=== PATIENT | male | born 1955 | race Caucasian/White ===

== ENCOUNTER 2018-08-17 07:42 | Inpatient (IN) | payer BC ==
[~2018-08-17] VITALS: Ht 185.4 cm; Wt 89.8 kg
[2018-08-17] VITALS (19 sets, daily range): BP systolic 118–190; BP diastolic 72–97
[2018-08-17 08:51] LABS: CHLORIDE 107 mEq/L (98-107)
[2018-08-17 08:56] LABS: HEMATOCRIT. 26.7 % (42.0-52.0); HEMOGLOBIN. 8.6 g/dL (14.0-18.0); MEAN CORPUSCULAR HEMOGLOBIN 29.3 pg (28.0-32.0); MEAN CORPUSCULAR VOLUME 90.9 fL (80.0-94.0); MEAN PLATELET VOLUME 7.3 fl (7.4-10.4); PLATELET 373 x1000/uL (130-400); RED BLOOD CELL COUNT 2.94 mill/uL (4.7-6.1); RED CELL DISTRIBUTION WIDTH 14.5 % (11.6-14.6)
[2018-08-17] MEDS ORDERED: MORPHINE SULFATE 4 MG/ML CPJ (NOT FOR IM USE) IV ONE ×2 (09:00→10:15)
[2018-08-17 10:12] LABS: PLATELET ESTIMATE NORMAL
[2018-08-17] MEDS ORDERED: NITROGLYCERIN 0.4MG TABLET SL SL PRN (10:30)
[2018-08-17] MEDS ORDERED: DEXTROSE 50% WATER 50ML SYRINGE IV PRN (13:15)
[2018-08-17] MEDS ORDERED: CLONIDINE 0.1MG TABLET PO PRN ×2 (13:45→14:15)
[2018-08-17] MEDS ORDERED: ACETAMINOPHEN 325MG TABLET PO PRN (13:45)
[2018-08-17] MEDS ORDERED: HYDROCODONE/ACETAMINOPHEN 5/325MG TABLET PO PRN (13:45)
[2018-08-17] MEDS ORDERED: ENOXAPARIN 30MG/0.3ML SYR SUBCUT SCH ×2 (14:00→16:00)
[2018-08-17] MEDS ORDERED: HYDRALAZINE 20MG/ML VIAL IV PRN (14:15)
[2018-08-17 14:47] LABS: TOTAL IRON BINDING CAPACITY 214 ug/dL (250-450)
[2018-08-17] MEDS: ASPIRIN 81MG TABLET PO SCH (15:18)
[2018-08-17] MEDS: AMLODIPINE 10MG TABLET PO SCH ×2 (15:18→20:11)
[2018-08-17 15:58] LABS: CREATINE KINASE MB FRACTION 94.8 ng/mL (0.5-3.6)
[2018-08-17] MEDS: BLOOD SUGAR DIAGNOSTIC STRIP TEST SCH ×2 (17:26→20:11)
[2018-08-17] MEDS: INSULIN LISPRO 100 UNITS/ML SUBCUT SCH ×2 (17:44→20:11)
[2018-08-17] MEDS ORDERED: NITROGLYCERIN OINT 1GM/INCH UDPKT TD SCH (18:00)
[2018-08-17] MEDS ORDERED: HEPARIN 25,000 UNITS PREMIX 500 ML IV SCH (18:30)
[2018-08-17] MEDS ORDERED: HEPARIN 5000 UNITS/ML VIAL IV SCH (18:30)
[2018-08-17] MEDS ORDERED: HEPARIN 100 UNITS/1 ML VIAL IVF ONE (18:30)
[2018-08-17] MEDS: METOPROLOL TARTRATE 25MG TABLET PO SCH (18:31)
[2018-08-17] MEDS ORDERED: HEPARIN BOLUS PRN aPTT <30 IV (19:00)
[2018-08-17 19:15] LABS: *AMPHETAMINES SCREEN URINE NEGATIVE (NEGATIVE); *BARBITURATES SCREEN URINE NEGATIVE (NEGATIVE); *BENZODIAZEPINES SCREEN URINE NEGATIVE (NEGATIVE); *COCAINE SCREEN URINE NEGATIVE (NEGATIVE); METHADONE URINE SCREEN NEGATIVE (NEGATIVE); OPIATES URINE SCREEN NEGATIVE (NEGATIVE)
[2018-08-17 19:16] LABS: CANNABINOID URINE SCREEN NEGATIVE (NEGATIVE); PHENCYCLIDINE URINE SCREEN NEGATIVE (NEGATIVE)
[2018-08-17 19:34] LABS: INR 1.1; PROTHROMBIN TIME 11.2 sec (9.6-11.0)
[2018-08-17] MEDS: HEPARIN 25,000 UNITS PREMIX 500 ML IV SCH (20:53)
[2018-08-17] MEDS: HYDRALAZINE HCL 100MG TABLET PO SCH (22:00)
[2018-08-17] MEDS: NITROGLYCERIN OINT 1GM/INCH UDPKT TD SCH (22:12)
[2018-08-17 23:12] LABS: *AMPHETAMINES SCREEN URINE NEGATIVE (NEGATIVE); *BARBITURATES SCREEN URINE NEGATIVE (NEGATIVE); *BENZODIAZEPINES SCREEN URINE NEGATIVE (NEGATIVE); *COCAINE SCREEN URINE NEGATIVE (NEGATIVE); CANNABINOID URINE SCREEN NEGATIVE (NEGATIVE); METHADONE URINE SCREEN NEGATIVE (NEGATIVE); OPIATES URINE SCREEN NEGATIVE (NEGATIVE); PHENCYCLIDINE URINE SCREEN NEGATIVE (NEGATIVE)
[2018-08-18] VITALS (64 sets, daily range): BP systolic 85–132; BP diastolic 35–80
[2018-08-18] MEDS ORDERED: CEFTRIAXONE 2 G PREMIX 50 ML IV SCH (00:15)
[2018-08-18] MEDS: CEFTRIAXONE 2 G in DEXTROSE 5% WATER 50 ML IV SCH (01:04)
[2018-08-18] MEDS: HYDRALAZINE HCL 100MG TABLET PO SCH ×3 (05:04→22:41)
[2018-08-18] MEDS: BLOOD SUGAR DIAGNOSTIC STRIP TEST SCH ×4 (05:47→20:44)
[2018-08-18] MEDS: NITROGLYCERIN OINT 1GM/INCH UDPKT TD SCH ×3 (05:47→22:41)
[2018-08-18 05:52] LABS: BASOPHILS % 0.5 % (0.0-2.0); EOSINOPHILS % 1.5 % (0.0-5.0); HEMATOCRIT. 23.2 % (42.0-52.0); HEMOGLOBIN. 7.7 g/dL (14.0-18.0); LYMPHOCYTES % 7.5 % (20.0-50.0); MEAN CORPUSCULAR HEMOGLOBIN 29.7 pg (28.0-32.0); MEAN CORPUSCULAR VOLUME 89.2 fL (80.0-94.0); MEAN PLATELET VOLUME 7.1 fl (7.4-10.4); MONOCYTES % 7.7 % (2.0-8.0); NEUTROPHILS % 82.8 % (40.0-76.0); PLATELET 298 x1000/uL (130-400); RED CELL DISTRIBUTION WIDTH 13.6 % (11.6-14.6)
[2018-08-18 06:02] LABS: CREATINE KINASE MB FRACTION 128.7 ng/mL (0.5-3.6)
[2018-08-18] MEDS: INSULIN LISPRO 100 UNITS/ML SUBCUT SCH ×4 (06:03→20:49)
[2018-08-18 08:15] LABS: CLARITY URINE CLOUDY (CLEAR); COLOR URINE YELLOW (YELLOW); KETONES URINE NEGATIVE (NEGATIVE); LEUKOCYTE ESTERASE URINE 3+ (NEGATIVE); NITRITE URINE NEGATIVE (NEGATIVE); OCCULT BLOOD URINE 3+ (NEGATIVE); PROTEIN URINE 1+ (NEGATIVE); SPECIFIC GRAVITY URINE 1.011 (1.005-1.030); UROBILINOGEN URINE 0.2 E.U./dL (0.2-1.0)
[2018-08-18] MEDS ORDERED: ENOXAPARIN 40MG/0.4ML SYR SUBCUT SCH (09:00)
[2018-08-18] MEDS: ASPIRIN 81MG TABLET PO SCH (09:01)
[2018-08-18] MEDS: METOPROLOL TARTRATE 25MG TABLET PO SCH ×2 (09:08→20:51)
[2018-08-18] MEDS: AMLODIPINE 10MG TABLET PO SCH ×2 (09:08→20:51)
[2018-08-19] VITALS (66 sets, daily range): BP systolic 91–154; BP diastolic 33–97
[2018-08-19] MEDS: HEPARIN BOLUS PRN aPTT 30-44 IV ×2 (00:14→14:04)
[2018-08-19] MEDS: CEFTRIAXONE 2 G in DEXTROSE 5% WATER 50 ML IV SCH (00:36)
[2018-08-19] MEDS: HYDRALAZINE HCL 100MG TABLET PO SCH ×3 (06:00→22:00)
[2018-08-19] MEDS: BLOOD SUGAR DIAGNOSTIC STRIP TEST SCH ×4 (06:03→20:52)
[2018-08-19] MEDS: NITROGLYCERIN OINT 1GM/INCH UDPKT TD SCH ×3 (06:03→22:38)
[2018-08-19] MEDS: INSULIN LISPRO 100 UNITS/ML SUBCUT SCH ×4 (07:00→21:06)
[2018-08-19 08:41] LABS: HEMATOCRIT. 24.4 % (42.0-52.0); HEMOGLOBIN. 7.9 g/dL (14.0-18.0); MEAN CORPUSCULAR HEMOGLOBIN 29.2 pg (28.0-32.0); MEAN CORPUSCULAR VOLUME 89.9 fL (80.0-94.0); MEAN PLATELET VOLUME 7.8 fl (7.4-10.4); PLATELET 290 x1000/uL (130-400); RED BLOOD CELL COUNT 2.71 mill/uL (4.7-6.1); RED CELL DISTRIBUTION WIDTH 13.7 % (11.6-14.6)
[2018-08-19] MEDS: ASPIRIN 81MG TABLET PO SCH (08:57)
[2018-08-19 08:58] LABS: CHLORIDE 107 mEq/L (98-107)
[2018-08-19] MEDS: METOPROLOL TARTRATE 25MG TABLET PO SCH ×2 (09:00→21:05)
[2018-08-19] MEDS: AMLODIPINE 10MG TABLET PO SCH (09:00)
[2018-08-19 09:08] LABS: CREATINE KINASE 234 IU/L (39-308)
[2018-08-19 09:11] LABS: CREATINE KINASE MB FRACTION 43.2 ng/mL (0.5-3.6)
[2018-08-19 10:42] LABS: VITAMIN B12 SERUM 663 pg/mL (211-911)
[2018-08-19] MEDS: ONDANSETRON HCL 4MG/2ML INJ IV PRN ×2 (12:21→21:04)
[2018-08-19 13:08] LABS: PLATELET ESTIMATE NORMAL
[2018-08-19] MEDS ORDERED: HEPARIN SODIUM 1,000 UNIT/1ML VIAL IV NR (13:30)
[2018-08-19] MEDS: EPOETIN ALFA 4000UNITS/ML VIAL SUBCUT SCH (21:05)
[2018-08-19] MEDS: HEPARIN 25,000 UNITS PREMIX 500 ML IV SCH (21:10)
[2018-08-20] VITALS (61 sets, daily range): BP systolic 105–159; BP diastolic 45–78
[2018-08-20] MEDS: HEPARIN BOLUS PRN aPTT 30-44 IV (00:43)
[2018-08-20] MEDS: CEFTRIAXONE 2 G in DEXTROSE 5% WATER 50 ML IV SCH (01:17)
[2018-08-20] MEDS: HYDRALAZINE HCL 100MG TABLET PO SCH ×3 (06:28→22:00)
[2018-08-20] MEDS: NITROGLYCERIN OINT 1GM/INCH UDPKT TD SCH ×3 (06:29→22:08)
[2018-08-20] MEDS: BLOOD SUGAR DIAGNOSTIC STRIP TEST SCH ×4 (06:30→20:38)
[2018-08-20] MEDS: INSULIN LISPRO 100 UNITS/ML SUBCUT SCH ×4 (07:00→20:39)
[2018-08-20 07:43] LABS: CHLORIDE 104 mEq/L (98-107)
[2018-08-20 07:49] LABS: HEMATOCRIT. 21.7 % (42.0-52.0); HEMOGLOBIN. 7.3 g/dL (14.0-18.0); MEAN CORPUSCULAR HEMOGLOBIN 29.3 pg (28.0-32.0); MEAN CORPUSCULAR VOLUME 86.6 fL (80.0-94.0); MEAN PLATELET VOLUME 7.6 fl (7.4-10.4); PLATELET 295 x1000/uL (130-400); RED BLOOD CELL COUNT 2.51 mill/uL (4.7-6.1); RED CELL DISTRIBUTION WIDTH 13.6 % (11.6-14.6)
[2018-08-20 07:55] LABS: CREATINE KINASE 138 IU/L (39-308)
[2018-08-20 08:00] LABS: CREATINE KINASE MB FRACTION 21.4 ng/mL (0.5-3.6)
[2018-08-20] MEDS: METOPROLOL TARTRATE 25MG TABLET PO SCH ×2 (09:00→20:41)
[2018-08-20] MEDS ORDERED: ALBUMIN HUMAN 25GM/100ML (25%) IV NR (09:00)
[2018-08-20] MEDS ORDERED: HEPARIN SODIUM 1,000 UNIT/1ML VIAL IV NR (10:00)
[2018-08-20] MEDS ORDERED: MAGNESIUM CITRATE 300ML SOLUTION PO NR (10:30)
[2018-08-20] MEDS: CALCIUM ACETATE 667MG CAPSULE PO SCH ×2 (11:48→16:47)
[2018-08-20 15:58] LABS: PLATELET ESTIMATE NORMAL
[2018-08-20] MEDS: POLYETHYLENE GLYCOL 3350 (17GM) 1 DOSE PACK PO SCH (16:37)
[2018-08-20] MEDS ORDERED: DOCUSATE SODIUM SUGAR FREE 100MG/10ML UDC NG SCH (17:00)
[2018-08-20] MEDS ORDERED: DOCUSATE SODIUM SUGAR FREE 100MG/10ML UDC PO SCH (18:30)
[2018-08-20] MEDS: OMEPRAZOLE 20MG CAPSULE EXTENDED RELEASE PO SCH (20:40)
[2018-08-21] VITALS (65 sets, daily range): BP systolic 80–159; BP diastolic 35–88
[2018-08-21] MEDS: CEFTRIAXONE 2 G in DEXTROSE 5% WATER 50 ML IV SCH ×2 (00:40→23:53)
[2018-08-21 05:51] LABS: BASOPHILS % 0.4 % (0.0-2.0); EOSINOPHILS % 0.7 % (0.0-5.0); HEMATOCRIT. 21.3 % (42.0-52.0); HEMOGLOBIN. 7.2 g/dL (14.0-18.0); MEAN CORPUSCULAR HEMOGLOBIN 29.3 pg (28.0-32.0); MEAN CORPUSCULAR VOLUME 86.6 fL (80.0-94.0); MEAN PLATELET VOLUME 7.8 fl (7.4-10.4); MONOCYTES % 9.4 % (2.0-8.0); NEUTROPHILS % 81.5 % (40.0-76.0); PLATELET 302 x1000/uL (130-400); RED BLOOD CELL COUNT 2.46 mill/uL (4.7-6.1); RED CELL DISTRIBUTION WIDTH 13.5 % (11.6-14.6)
[2018-08-21 05:59] LABS: CHLORIDE 102 mEq/L (98-107)
[2018-08-21] MEDS: HYDRALAZINE HCL 100MG TABLET PO SCH ×3 (06:00→22:00)
[2018-08-21 06:10] LABS: CREATINE KINASE 114 IU/L (39-308)
[2018-08-21 06:13] LABS: CREATINE KINASE MB FRACTION 6.4 ng/mL (0.5-3.6)
[2018-08-21] MEDS: CALCIUM ACETATE 667MG CAPSULE PO SCH ×3 (06:30→17:00)
[2018-08-21] MEDS: BLOOD SUGAR DIAGNOSTIC STRIP TEST SCH ×4 (06:30→21:45)
[2018-08-21] MEDS: OMEPRAZOLE 20MG CAPSULE EXTENDED RELEASE PO SCH ×2 (06:30→21:46)
[2018-08-21] MEDS: INSULIN LISPRO 100 UNITS/ML SUBCUT SCH ×4 (06:30→21:00)
[2018-08-21] MEDS: NITROGLYCERIN OINT 1GM/INCH UDPKT TD SCH ×3 (06:31→21:46)
[2018-08-21] MEDS: POLYETHYLENE GLYCOL 3350 (17GM) 1 DOSE PACK PO SCH (09:00)
[2018-08-21] MEDS: DOCUSATE SODIUM 100MG CAPSULE PO SCH ×2 (09:22→17:00)
[2018-08-21] MEDS: METOPROLOL TARTRATE 25MG TABLET PO SCH ×2 (09:23→21:46)
[2018-08-21] MEDS ORDERED: MIDAZOLAM HCL 5 MG/5 ML VIAL ONE (15:04)
[2018-08-21] MEDS ORDERED: FENTANYL CITRATE/PF 50MCG/ML 2ML VIAL ONE ×2 (15:05→17:27)
[2018-08-21] MEDS ORDERED: DIPHENHYDRAMINE 50MG/ML VIAL ONE (15:05)
[2018-08-21] MEDS ORDERED: FENTANYL CITRATE/PF 50MCG/ML 2ML VIAL IV ONE (17:30)
[2018-08-21] MEDS ORDERED: MIDAZOLAM HCL 2 MG/2 ML VIAL IV ONE (17:30)
[2018-08-21 20:06] LABS: HEMATOCRIT. 24.8 % (42.0-52.0); HEMOGLOBIN. 8.4 g/dL (14.0-18.0); MEAN CORPUSCULAR HEMOGLOBIN 29.3 pg (28.0-32.0); MEAN CORPUSCULAR VOLUME 87.1 fL (80.0-94.0); MEAN PLATELET VOLUME 7.6 fl (7.4-10.4); PLATELET 267 x1000/uL (130-400); RED BLOOD CELL COUNT 2.85 mill/uL (4.7-6.1); RED CELL DISTRIBUTION WIDTH 13.8 % (11.6-14.6)
[2018-08-21] MEDS ORDERED: EPOETIN ALFA 4000UNITS/ML VIAL SUBCUT SCH (21:00)
[2018-08-21 22:06] LABS: PLATELET ESTIMATE NORMAL
[2018-08-21] MEDS: EPOETIN ALFA 4000UNITS/ML VIAL SUBCUT SCH (22:48)
[2018-08-21] MEDS ORDERED: LIDOCAINE HCL 2% JELLY 5ML MM NR (23:30)
[2018-08-22] VITALS (36 sets, daily range): BP systolic 100–145; BP diastolic 56–101
[2018-08-22 05:01] LABS: BASOPHILS % 0.6 % (0.0-2.0); EOSINOPHILS % 2.1 % (0.0-5.0); HEMATOCRIT. 24.7 % (42.0-52.0); HEMOGLOBIN. 8.3 g/dL (14.0-18.0); LYMPHOCYTES % 10.4 % (20.0-50.0); MEAN CORPUSCULAR HEMOGLOBIN 29.3 pg (28.0-32.0); MEAN CORPUSCULAR VOLUME 87.7 fL (80.0-94.0); MEAN PLATELET VOLUME 7.4 fl (7.4-10.4); NEUTROPHILS % 77.9 % (40.0-76.0); PLATELET 278 x1000/uL (130-400); RED BLOOD CELL COUNT 2.82 mill/uL (4.7-6.1); RED CELL DISTRIBUTION WIDTH 14.3 % (11.6-14.6)
[2018-08-22] MEDS: HYDRALAZINE HCL 100MG TABLET PO SCH ×3 (06:00→22:00)
[2018-08-22] MEDS: OMEPRAZOLE 20MG CAPSULE EXTENDED RELEASE PO SCH ×2 (06:09→21:22)
[2018-08-22] MEDS: CALCIUM ACETATE 667MG CAPSULE PO SCH ×3 (06:09→18:02)
[2018-08-22] MEDS: INSULIN LISPRO 100 UNITS/ML SUBCUT SCH ×4 (06:10→21:00)
[2018-08-22] MEDS: NITROGLYCERIN OINT 1GM/INCH UDPKT TD SCH ×3 (06:10→22:00)
[2018-08-22] MEDS: BLOOD SUGAR DIAGNOSTIC STRIP TEST SCH ×4 (06:10→21:00)
[2018-08-22] MEDS: POLYETHYLENE GLYCOL 3350 (17GM) 1 DOSE PACK PO SCH (09:00)
[2018-08-22] MEDS: METOPROLOL TARTRATE 25MG TABLET PO SCH ×2 (09:15→21:00)
[2018-08-22] MEDS: DOCUSATE SODIUM 100MG CAPSULE PO SCH ×2 (09:15→18:02)
[2018-08-22] MEDS: ASPIRIN 81MG TABLET PO SCH (11:44)
[2018-08-23] VITALS (12 sets, daily range): BP systolic 109–142; BP diastolic 61–81
[2018-08-23] MEDS: CEFTRIAXONE 2 G in DEXTROSE 5% WATER 50 ML IV SCH (02:39)
[2018-08-23] MEDS: NITROGLYCERIN OINT 1GM/INCH UDPKT TD SCH ×3 (06:12→21:29)
[2018-08-23] MEDS: HYDRALAZINE HCL 100MG TABLET PO SCH ×3 (06:12→21:29)
[2018-08-23] MEDS: OMEPRAZOLE 20MG CAPSULE EXTENDED RELEASE PO SCH ×2 (06:12→21:28)
[2018-08-23] MEDS: BLOOD SUGAR DIAGNOSTIC STRIP TEST SCH ×4 (06:30→20:40)
[2018-08-23] MEDS: INSULIN LISPRO 100 UNITS/ML SUBCUT SCH ×4 (07:20→20:40)
[2018-08-23] MEDS: POLYETHYLENE GLYCOL 3350 (17GM) 1 DOSE PACK PO SCH (07:58)
[2018-08-23] MEDS: ASPIRIN 81MG TABLET PO SCH (08:02)
[2018-08-23] MEDS: CALCIUM ACETATE 667MG CAPSULE PO SCH ×3 (08:02→17:55)
[2018-08-23] MEDS: DOCUSATE SODIUM 100MG CAPSULE PO SCH ×2 (08:03→17:55)
[2018-08-23] MEDS: METOPROLOL TARTRATE 25MG TABLET PO SCH ×2 (08:03→21:28)
[2018-08-23 19:21] LABS: CLARITY URINE TURBID (CLEAR); COLOR URINE YELLOW (YELLOW); KETONES URINE NEGATIVE (NEGATIVE); LEUKOCYTE ESTERASE URINE 3+ (NEGATIVE); NITRITE URINE NEGATIVE (NEGATIVE); OCCULT BLOOD URINE 3+ (NEGATIVE); PH URINE 7.5 (4.5-8.0); PROTEIN URINE 1+ (NEGATIVE); SPECIFIC GRAVITY URINE 1.008 (1.005-1.030); UROBILINOGEN URINE 0.2 E.U./dL (0.2-1.0)
[2018-08-24] VITALS (17 sets, daily range): BP systolic 107–149; BP diastolic 55–78
[2018-08-24] MEDS: CEFTRIAXONE 2 G in DEXTROSE 5% WATER 50 ML IV SCH (01:41)
[2018-08-24] MEDS: HYDRALAZINE HCL 100MG TABLET PO SCH ×3 (06:00→21:49)
[2018-08-24 06:18] LABS: HEMATOCRIT 22.2 % (42.0-52.0); HEMOGLOBIN 7.3 g/dL (14.0-18.0); MEAN CORPUSCULAR HEMOGLOBIN 29.1 pg (28.0-32.0); MEAN CORPUSCULAR VOLUME 88.1 fL (80.0-94.0); PLATELET 231 x1000/uL (130-400); RED BLOOD CELL COUNT 2.52 mill/uL (4.7-6.1); RED CELL DISTRIBUTION WIDTH 14.4 % (11.6-14.6)
[2018-08-24] MEDS: OMEPRAZOLE 20MG CAPSULE EXTENDED RELEASE PO SCH ×2 (06:20→21:49)
[2018-08-24] MEDS: BLOOD SUGAR DIAGNOSTIC STRIP TEST SCH ×4 (06:20→21:00)
[2018-08-24] MEDS: NITROGLYCERIN OINT 1GM/INCH UDPKT TD SCH ×3 (06:20→21:50)
[2018-08-24] MEDS: CALCIUM ACETATE 667MG CAPSULE PO SCH ×3 (07:20→18:07)
[2018-08-24] MEDS: INSULIN LISPRO 100 UNITS/ML SUBCUT SCH ×4 (07:20→21:00)
[2018-08-24] MEDS: METOPROLOL TARTRATE 25MG TABLET PO SCH ×2 (09:00→21:49)
[2018-08-24] MEDS: POLYETHYLENE GLYCOL 3350 (17GM) 1 DOSE PACK PO SCH (09:00)
[2018-08-24] MEDS: ASPIRIN 81MG TABLET PO SCH (11:08)
[2018-08-24] MEDS: DOCUSATE SODIUM 100MG CAPSULE PO SCH ×2 (11:08→18:07)
[2018-08-24] MEDS: FINASTERIDE 5MG TABLET PO SCH (21:48)
[2018-08-24] MEDS: TAMSULOSIN HCL 0.4MG SR CAPSULE PO SCH (21:49)
[2018-08-24] MEDS: EPOETIN ALFA 4000UNITS/ML VIAL SUBCUT SCH (21:50)
[2018-08-25] VITALS (22 sets, daily range): BP systolic 90–140; BP diastolic 45–93
[2018-08-25] MEDS: CEFTRIAXONE 2 G in DEXTROSE 5% WATER 50 ML IV SCH (01:36)
[2018-08-25] MEDS: HYDRALAZINE HCL 100MG TABLET PO SCH ×3 (05:47→22:00)
[2018-08-25] MEDS: BLOOD SUGAR DIAGNOSTIC STRIP TEST SCH ×4 (05:47→21:40)
[2018-08-25] MEDS: INSULIN LISPRO 100 UNITS/ML SUBCUT SCH ×4 (05:48→21:00)
[2018-08-25] MEDS: NITROGLYCERIN OINT 1GM/INCH UDPKT TD SCH ×3 (05:49→22:00)
[2018-08-25 06:13] LABS: HIV SCREEN 4G Non Reactive (Non Reactive)
[2018-08-25 06:42] LABS: HEMATOCRIT. 25.1 % (42.0-52.0); HEMOGLOBIN. 8.4 g/dL (14.0-18.0); MEAN CORPUSCULAR VOLUME 89.2 fL (80.0-94.0); MEAN PLATELET VOLUME 7.6 fl (7.4-10.4); PLATELET 199 x1000/uL (130-400); RED BLOOD CELL COUNT 2.81 mill/uL (4.7-6.1)
[2018-08-25] MEDS ORDERED: ASPIRIN/SOD BICARB/CITRIC ACID 324MG TAB EFF ONE (08:00)
[2018-08-25] MEDS ORDERED: IODIXANOL 320MG/ML 100 ML BOTTLE IV ONE (08:00)
[2018-08-25] MEDS ORDERED: LIDOCAINE HCL 1% 20ML VIAL (Pyxis) INJ ONE (08:00)
[2018-08-25] MEDS ORDERED: MIDAZOLAM HCL 2 MG/2 ML VIAL ONE (08:16)
[2018-08-25] MEDS ORDERED: FENTANYL CITRATE/PF 50MCG/ML 2ML VIAL ONE (08:17)
[2018-08-25] MEDS ORDERED: IOHEXOL-300 100 ML BOTTLE ONE (08:43)
[2018-08-25] MEDS ORDERED: ACETAMINOPHEN 325MG TABLET PO PRN ×2 (09:15→16:15)
[2018-08-25] MEDS ORDERED: ONDANSETRON HCL 4MG/2ML INJ IV PRN (09:15)
[2018-08-25] MEDS ORDERED: ATROPINE SULFATE 1MG/10ML SYR IV PRN (09:15)
[2018-08-25] MEDS ORDERED: MORPHINE SULFATE 2 MG/ML CPJ (NOT FOR IM USE) IV PRN (09:15)
[2018-08-25] MEDS ORDERED: HEPARIN SODIUM 1,000 UNIT/1ML VIAL IV ONE (10:17)
[2018-08-25] MEDS ORDERED: NITROGLYCERIN 50MCG/ML 10ML VIAL (CATH LAB) IV ONE (10:17)
[2018-08-25] MEDS ORDERED: PHENYLEPHRINE 100MCG/ML 10ML VIAL (CATH LAB) IV ONE (10:17)
[2018-08-25] MEDS ORDERED: NICARDIPINE 100MCG/ML 10ML VIAL (CATH LAB) IV ONE (10:17)
[2018-08-25] MEDS: CALCIUM ACETATE 667MG CAPSULE PO SCH ×3 (10:24→18:30)
[2018-08-25] MEDS: POLYETHYLENE GLYCOL 3350 (17GM) 1 DOSE PACK PO SCH (10:25)
[2018-08-25] MEDS: METOPROLOL TARTRATE 25MG TABLET PO SCH ×2 (10:25→21:00)
[2018-08-25] MEDS: DOCUSATE SODIUM 100MG CAPSULE PO SCH ×2 (10:25→18:30)
[2018-08-25] MEDS: ASPIRIN 81MG TABLET PO SCH (10:25)
[2018-08-25 15:41] LABS: PLATELET ESTIMATE NORMAL
[2018-08-25] MEDS ORDERED: NITROGLYCERIN 0.4MG TABLET SL SL PRN (16:15)
[2018-08-25] MEDS ORDERED: LEVOFLOXACIN 500MG PREMIX 100 ML IV SCH (18:00)
[2018-08-25 18:58] LABS: PROTHROMBIN TIME 10.3 sec (9.6-11.0)
[2018-08-25] MEDS ORDERED: ALBUMIN HUMAN 12.5G/250ML (5%) IV NR (21:00)
[2018-08-26] VITALS (16 sets, daily range): BP systolic 98–132; BP diastolic 47–74
[2018-08-26] MEDS: FINASTERIDE 5MG TABLET PO SCH ×2 (00:16→21:30)
[2018-08-26] MEDS: TAMSULOSIN HCL 0.4MG SR CAPSULE PO SCH ×2 (00:17→21:30)
[2018-08-26] MEDS: OMEPRAZOLE 20MG CAPSULE EXTENDED RELEASE PO SCH ×3 (00:18→21:30)
[2018-08-26] MEDS: HYDRALAZINE HCL 100MG TABLET PO SCH ×3 (06:00→21:15)
[2018-08-26] MEDS: BLOOD SUGAR DIAGNOSTIC STRIP TEST SCH ×4 (06:16→20:59)
[2018-08-26] MEDS: NITROGLYCERIN OINT 1GM/INCH UDPKT TD SCH ×3 (06:28→21:43)
[2018-08-26 07:18] LABS: HEMATOCRIT. 26.5 % (42.0-52.0); HEMOGLOBIN. 9.1 g/dL (14.0-18.0); MEAN CORPUSCULAR HEMOGLOBIN 30.5 pg (28.0-32.0); MEAN CORPUSCULAR VOLUME 88.5 fL (80.0-94.0); MEAN PLATELET VOLUME 7.6 fl (7.4-10.4); PLATELET 181 x1000/uL (130-400); RED CELL DISTRIBUTION WIDTH 14.1 % (11.6-14.6)
[2018-08-26] MEDS: INSULIN LISPRO 100 UNITS/ML SUBCUT SCH ×4 (07:20→20:59)
[2018-08-26 07:32] LABS: CHLORIDE 105 mEq/L (98-107)
[2018-08-26] MEDS: POLYETHYLENE GLYCOL 3350 (17GM) 1 DOSE PACK PO SCH (09:01)
[2018-08-26] MEDS: CALCIUM ACETATE 667MG CAPSULE PO SCH ×3 (09:02→18:00)
[2018-08-26] MEDS: DOCUSATE SODIUM 100MG CAPSULE PO SCH ×2 (09:02→18:00)
[2018-08-26] MEDS: ASPIRIN 81MG TABLET PO SCH (09:02)
[2018-08-26] MEDS: METOPROLOL TARTRATE 25MG TABLET PO SCH ×2 (09:02→21:00)
[2018-08-26 10:43] LABS: PLATELET ESTIMATE NORMAL
[2018-08-26] MEDS ORDERED: ALBUMIN HUMAN 12.5G/250ML (5%) IV NR (14:30)
[2018-08-26] MEDS ORDERED: DOCUSATE SODIUM 100MG CAPSULE PO SCH (21:00)
[2018-08-26] MEDS ORDERED: FLUTICASONE PROPIONATE 50MCG/SPRAY BOTTLE BOTHNSTRLS SCH (21:00)
[2018-08-26] MEDS ORDERED: CHLORHEXIDINE GLUCONATE 4% EXTERNAL USE TOP SCH (21:00)
[2018-08-26] MEDS ORDERED: BISACODYL 10MG SUPP PR PRN (21:00)
[2018-08-26] MEDS ORDERED: ASCORBIC ACID 500 MG TABLET PO SCH (21:00)
[2018-08-26] MEDS: ALLOPURINOL 300 MG TABLET PO SCH (21:29)
[2018-08-27] VITALS (49 sets, daily range): BP systolic 79–233; BP diastolic 15–233
[2018-08-27 04:39] LABS: HEMATOCRIT. 31.3 % (42.0-52.0); HEMOGLOBIN. 10.5 g/dL (14.0-18.0); MEAN CORPUSCULAR HEMOGLOBIN 29.9 pg (28.0-32.0); MEAN CORPUSCULAR VOLUME 89.4 fL (80.0-94.0); MEAN PLATELET VOLUME 8.1 fl (7.4-10.4); PLATELET 144 x1000/uL (130-400); RED CELL DISTRIBUTION WIDTH 15.4 % (11.6-14.6)
[2018-08-27 04:43] LABS: INR 1.1; PROTHROMBIN TIME 10.9 sec (9.6-11.0)
[2018-08-27] MEDS: ALLOPURINOL 300 MG TABLET PO SCH (05:13)
[2018-08-27] MEDS ORDERED: THROMBIN (BOVINE) 5000 UNITS/VIAL TOP ONE ×2 (05:48→05:49)
[2018-08-27] MEDS ORDERED: METHYLENE BLUE 50 MG/10 ML AMP IV ONE (05:48)
[2018-08-27] MEDS ORDERED: BACITRACIN 15GM TUBE TOP ONE (05:48)
[2018-08-27] MEDS ORDERED: NORMAL SALINE 0.9% 10 ML SYR ONE (05:49)
[2018-08-27] MEDS ORDERED: BACITRACIN 50,000 UNITS/VIAL ONE (05:49)
[2018-08-27] MEDS ORDERED: DEL NIDO ELECTROLYTE-S(PH 7.4) 1,000 ML IV PRN ×2 (06:00)
[2018-08-27] MEDS ORDERED: NICARDIPINE 40MG/200ML PREMIX 200 ML IV PRN (06:00)
[2018-08-27] MEDS ORDERED: CEFAZOLIN 2,000 MG in DEXT 5% WATER 100 ML IV PRN (06:00)
[2018-08-27] MEDS ORDERED: PAPAVERINE HCL 180MG in SODIUM CHLORIDE 0.9% 24ML IV PRN (06:00)
[2018-08-27] MEDS: HYDRALAZINE HCL 100MG TABLET PO SCH (06:00)
[2018-08-27] MEDS ORDERED: AMINOCAPROIC ACID 10,000 MG in SODIUM CHLORIDE 0.9% 460 ML IV PRN (06:00)
[2018-08-27] MEDS ORDERED: INSULIN REGULAR (DRIP) 100 UNITS in SODIUM CHLORIDE 0.9% 99 ML IV PRN (06:00)
[2018-08-27] MEDS ORDERED: EPINEPHRINE 4 MG in DEXT 5% WATER 246 ML IV PRN (06:00)
[2018-08-27] MEDS ORDERED: DOBUTAMINE HCL 250 MG in DEXT 5% WATER 230 ML IV PRN (06:00)
[2018-08-27] MEDS ORDERED: NOREPINEPHRINE 4 MG in DEXT 5% WATER 246 ML IV PRN (06:00)
[2018-08-27] MEDS ORDERED: HEPARIN 1000 UNITS/ML 10ML ONE ×3 (06:02→07:13)
[2018-08-27] MEDS ORDERED: FENTANYL CITRATE/PF 50MCG/ML 5ML VIAL ONE (06:38)
[2018-08-27] MEDS ORDERED: MIDAZOLAM HCL 5 MG/5 ML VIAL ONE (06:38)
[2018-08-27] MEDS ORDERED: MIDAZOLAM HCL 5 MG/ML VIAL ONE (06:39)
[2018-08-27 06:46] LABS: PLATELET ESTIMATE NORMAL
[2018-08-27] MEDS ORDERED: SUCCINYLCHOLINE CHLORIDE 200MG/10ML IV ONE (06:52)
[2018-08-27] MEDS ORDERED: AMINOCAPROIC ACID 250 MG/ML 20ML VIAL ONE (07:06)
[2018-08-27] MEDS ORDERED: POTASSIUM CHLORIDE 40MEQ/20ML INJ IV ONE (07:06)
[2018-08-27] MEDS ORDERED: MAGNESIUM SULFATE 5GM/10ML VIAL IV ONE (07:09)
[2018-08-27] MEDS ORDERED: ALBUMIN HUMAN 25GM/100ML (25%) IV ONE ×3 (07:09→14:22)
[2018-08-27] MEDS ORDERED: PHENYLEPHRINE HCL 10 MG/ML 1ML (IV VIAL) IV ONE (07:10)
[2018-08-27] MEDS ORDERED: CALCIUM CHLORIDE 1GM/10ML SYR IV ONE ×3 (07:11→15:36)
[2018-08-27] MEDS ORDERED: MANNITOL 20% 500 ML IV ONE (07:12)
[2018-08-27] MEDS ORDERED: SODIUM BICARBONATE 8.4% 1 MEQ/ML 50ML SYR IV ONE ×8 (07:12→16:19)
[2018-08-27] MEDS ORDERED: EPHEDRINE SULFATE 50MG/ML VIAL ONE (08:17)
[2018-08-27] MEDS ORDERED: ROCURONIUM BROMIDE 10MG/ML VIAL 5ML IV ONE (08:34)
[2018-08-27] MEDS ORDERED: VECURONIUM BROMIDE 10 MG/VIAL IV ONE (08:38)
[2018-08-27] MEDS ORDERED: CHLORHEXIDINE GLUCONATE 4% EXTERNAL USE TOP SCH (09:00)
[2018-08-27] MEDS ORDERED: HEPARIN 10,000 UNITS/ML VIAL ONE (09:37)
[2018-08-27] MEDS ORDERED: BUMETANIDE 1MG/4ML VIAL ONE (11:16)
[2018-08-27] MEDS ORDERED: SKIN ADHESIVE 0.7 GM EA TOP ONE (11:28)
[2018-08-27] MEDS ORDERED: SEVOFLURANE 250 ML LIQUID INH ONE (11:35)
[2018-08-27] MEDS ORDERED: VASOPRESSIN 20 UNIT/ML 1ML ONE (11:59)
[2018-08-27] MEDS ORDERED: HYDROCORTISONE SOD SUCCINATE 100 MG/2 ML VIAL ONE ×2 (12:00→12:03)
[2018-08-27] MEDS ORDERED: PROTAMINE SULFATE 10MG/ML VIAL 25ML IV ONE (12:24)
[2018-08-27] MEDS ORDERED: LIDOCAINE HCL 2% 5ML SYRINGE IV ONE (12:24)
[2018-08-27] MEDS ORDERED: METHYLPREDNISOLONE SOD SUCC 125 MG/2 ML VIAL ONE (12:24)
[2018-08-27] MEDS ORDERED: ESMOLOL 2500MG PREMIX 250 ML IV ONE (12:24)
[2018-08-27] MEDS ORDERED: MILRINONE 20MG-DEXT 5% PREMIX 100 ML IV ONE (12:40)
[2018-08-27] MEDS ORDERED: CEFAZOLIN SODIUM 1000MG/VIAL ONE (12:40)
[2018-08-27] MEDS ORDERED: FENTANYL CITRATE/PF 50MCG/ML 2ML VIAL ONE (13:25)
[2018-08-27 13:37] LABS: HEMATOCRIT. 25.8 % (42.0-52.0); HEMOGLOBIN. 8.4 g/dL (14.0-18.0); MEAN CORPUSCULAR HEMOGLOBIN 29.9 pg (28.0-32.0); MEAN CORPUSCULAR VOLUME 91.7 fL (80.0-94.0); MEAN PLATELET VOLUME 8.4 fl (7.4-10.4); PLATELET 100 x1000/uL (130-400); RED BLOOD CELL COUNT 2.81 mill/uL (4.7-6.1); RED CELL DISTRIBUTION WIDTH 15.9 % (11.6-14.6)
[2018-08-27 13:38] LABS: HEMATOCRIT 56.6 % (42.0-52.0); HEMOGLOBIN 18.5 g/dL (14.0-18.0)
[2018-08-27] MEDS ORDERED: NEOSTIGMINE METHYLSULFATE 1MG/ML 10 ML VIAL ONE ×2 (13:45→15:37)
[2018-08-27] MEDS ORDERED: METOCLOPRAMIDE HCL 10MG/2ML VIAL ONE (13:45)
[2018-08-27] MEDS ORDERED: ONDANSETRON HCL 4MG/2ML INJ ONE (13:45)
[2018-08-27 13:46] LABS: CHLORIDE 112 mEq/L (98-107); INR 1.5; PARTIAL THROMBOPLASTIN TIME 33.1 sec (23.4-31.0); PROTHROMBIN TIME 14.9 sec (9.6-11.0)
[2018-08-27 13:52] LABS: PHOSPHORUS 3.7 mg/dL (2.5-4.9)
[2018-08-27 14:03] LABS: PLATELET ESTIMATE DECREASED
[2018-08-27] MEDS ORDERED: SODIUM CHLORIDE 0.9% 500 ML IV PRN (14:25)
[2018-08-27] MEDS ORDERED: NOREPINEPHRINE 4 MG in DEXT 5% WATER 246 ML IV SCH (14:25)
[2018-08-27] MEDS ORDERED: DEXT 5%/0.45% NACL 1000ML 1,000 ML IV SCH (14:25)
[2018-08-27] MEDS ORDERED: ALBUMIN HUMAN 12.5G/250ML (5%) IV PRN (14:30)
[2018-08-27] MEDS ORDERED: OXYCODONE HCL/ACETAMINOPHEN 5/325MG TABLET PO PRN ×2 (14:30)
[2018-08-27] MEDS ORDERED: ALBUMIN HUMAN 25GM/100ML (25%) IV PRN (14:30)
[2018-08-27] MEDS ORDERED: ONDANSETRON HCL 4MG/2ML INJ IV PRN (14:30)
[2018-08-27] MEDS ORDERED: ACETAMINOPHEN 325MG TABLET PO PRN (14:30)
[2018-08-27] MEDS ORDERED: PROPOFOL 10MG/ML 100ML 100 ML IV ONE (14:36)
[2018-08-27] MEDS ORDERED: GENTAMICIN SULF 40MG/ML 2ML VIAL ONE (15:08)
[2018-08-27 15:35] LABS: BG BASE EXCESS -15.1 mmol/L (-2.0-2.0); BG CARBOXYHEMOGLOBIN 0.3 % (0.5-1.5); BG DEOXYHEMOGLOBIN 3.9 % (0.0-5.0); BG FRACTION INSPIRED OXYGEN 70; BG HCO3 ACT 13.3 mmol/L (22.0-26.0); BG METHEMOGLOBIN 0.5 % (0.0-1.5); BG OXYGEN SATURATION 96.1 % (92.0-98.5); BG OXYHEMOGLOBIN 95.3 % (94.0-97.0); BG PCO2 41.7 mmHg (35.0-45.0); BG PH 7.122 (7.350-7.450); BG PO2 100.4 mmHg (75.0-100.0); BG SAMPLE SITE A-LINE; BG TIDAL VOLUME(mL) 750 mL; BG TOTAL HEMOGLOBIN 10.1 g/dL (12.0-18.0); BG VENT MODE VENT - A/C; BG VENT RATE 14 set
[2018-08-27] MEDS ORDERED: GLYCOPYRROLATE 0.2 MG/ML 2ML VIAL ONE (15:36)
[2018-08-27] MEDS ORDERED: DEXTROSE 50% WATER 50ML SYRINGE IV PRN ×2 (15:45)
[2018-08-27] MEDS ORDERED: CEFAZOLIN 1000MG PREMIX 50 ML IV SCH (16:00)
[2018-08-27] MEDS ORDERED: SODIUM BICARBONATE 8.4% 1 MEQ/ML 50ML SYR IV NR ×3 (16:00→17:15)
[2018-08-27] MEDS: INSULIN REGULAR (DRIP) 100 UNITS in SODIUM CHLORIDE 0.9% 99 ML IV SCH (16:10)
[2018-08-27 16:15] LABS: BG BASE EXCESS -10.5 mmol/L (-2.0-2.0); BG CARBOXYHEMOGLOBIN 0.3 % (0.5-1.5); BG DEOXYHEMOGLOBIN 2.8 % (0.0-5.0); BG FRACTION INSPIRED OXYGEN 70; BG HCO3 ACT 15.5 mmol/L (22.0-26.0); BG METHEMOGLOBIN 0.5 % (0.0-1.5); BG OXYGEN SATURATION 97.2 % (92.0-98.5); BG OXYHEMOGLOBIN 96.4 % (94.0-97.0); BG PH 7.265 (7.350-7.450); BG PO2 109.2 mmHg (75.0-100.0); BG PRESSURE SUPPORT 5; BG SAMPLE SITE A-LINE; BG TOTAL HEMOGLOBIN 8.8 g/dL (12.0-18.0); BG VENT MODE VENT - CPAP
[2018-08-27] MEDS: MORPHINE SULFATE 2 MG/ML CPJ (NOT FOR IM USE) IV PRN (16:15)
[2018-08-27] MEDS: BLOOD SUGAR DIAGNOSTIC STRIP TEST SCH ×8 (16:17→23:00)
[2018-08-27] MEDS ORDERED: BACITRACIN 15GM TUBE TOP SCH (17:00)
[2018-08-27] MEDS: DOCUSATE SODIUM 100MG CAPSULE PO SCH (17:00)
[2018-08-27 17:06] LABS: BG BASE EXCESS -7.2 mmol/L (-2.0-2.0); BG CARBOXYHEMOGLOBIN 0.3 % (0.5-1.5); BG DEOXYHEMOGLOBIN 2.7 % (0.0-5.0); BG FRACTION INSPIRED OXYGEN 70; BG HCO3 ACT 18.5 mmol/L (22.0-26.0); BG METHEMOGLOBIN 0.4 % (0.0-1.5); BG OXYGEN SATURATION 97.3 % (92.0-98.5); BG OXYHEMOGLOBIN 96.6 % (94.0-97.0); BG PH 7.306 (7.350-7.450); BG PO2 107.3 mmHg (75.0-100.0); BG PRESSURE SUPPORT 5; BG SAMPLE SITE A-LINE; BG TOTAL HEMOGLOBIN 8.7 g/dL (12.0-18.0); BG VENT MODE VENT - CPAP
[2018-08-27] MEDS: HYDROMORPHONE HCL/PF 2MG/ML CPJ IV PRN ×2 (17:06→19:35)
[2018-08-27] MEDS ORDERED: ALBUMIN HUMAN 25GM/100ML (25%) IV NR (17:15)
[2018-08-27 17:40] LABS: HEMATOCRIT. 24.9 % (42.0-52.0); HEMOGLOBIN. 8.1 g/dL (14.0-18.0); MEAN CORPUSCULAR HEMOGLOBIN 29.4 pg (28.0-32.0); MEAN CORPUSCULAR VOLUME 90.2 fL (80.0-94.0); MEAN PLATELET VOLUME 8.1 fl (7.4-10.4); PLATELET 85 x1000/uL (130-400); RED BLOOD CELL COUNT 2.76 mill/uL (4.7-6.1); RED CELL DISTRIBUTION WIDTH 15.5 % (11.6-14.6)
[2018-08-27 17:47] LABS: CHLORIDE 112 mEq/L (98-107)
[2018-08-27 17:48] LABS: INR 1.2; PARTIAL THROMBOPLASTIN TIME 29.2 sec (23.4-31.0); PROTHROMBIN TIME 11.9 sec (9.6-11.0)
[2018-08-27 17:57] LABS: PLATELET ESTIMATE DECREASED
[2018-08-27] MEDS ORDERED: LEVOFLOXACIN 250MG PREMIX 50 ML IV SCH (18:00)
[2018-08-27 18:24] LABS: BG BASE EXCESS -6.8 mmol/L (-2.0-2.0); BG CARBOXYHEMOGLOBIN 0.1 % (0.5-1.5); BG DEOXYHEMOGLOBIN 3.4 % (0.0-5.0); BG FRACTION INSPIRED OXYGEN 60; BG METHEMOGLOBIN 0.8 % (0.0-1.5); BG OXYGEN SATURATION 96.6 % (92.0-98.5); BG OXYHEMOGLOBIN 95.7 % (94.0-97.0); BG PCO2 32.6 mmHg (35.0-45.0); BG PH 7.359 (7.350-7.450); BG PO2 99.1 mmHg (75.0-100.0); BG PRESSURE SUPPORT 5; BG SAMPLE SITE A-LINE; BG TOTAL HEMOGLOBIN 7.7 g/dL (12.0-18.0); BG VENT MODE VENT - CPAP
[2018-08-27] MEDS ORDERED: NOREPINEPHRINE 16 MG in DEXT 5% WATER 234 ML IV PRN (18:45)
[2018-08-27 19:17] LABS: BG CARBOXYHEMOGLOBIN 0.9 % (0.5-1.5); BG DEOXYHEMOGLOBIN 2.7 % (0.0-5.0); BG FRACTION INSPIRED OXYGEN 50; BG HCO3 ACT 19.2 mmol/L (22.0-26.0); BG METHEMOGLOBIN 0.4 % (0.0-1.5); BG OXYGEN SATURATION 97.3 % (92.0-98.5); BG PCO2 31.7 mmHg (35.0-45.0); BG PH 7.401 (7.350-7.450); BG PO2 106.9 mmHg (75.0-100.0); BG PRESSURE SUPPORT 5; BG SAMPLE SITE A-LINE; BG TIDAL VOLUME(mL) 392 mL; BG TOTAL HEMOGLOBIN 7.4 g/dL (12.0-18.0); BG VENT MODE MASK - CPAP
[2018-08-27 19:35] LABS: CLARITY URINE TURBID (CLEAR); COLOR URINE OTHER (YELLOW); KETONES URINE NEGATIVE (NEGATIVE); LEUKOCYTE ESTERASE URINE 3+ (NEGATIVE); NITRITE URINE NEGATIVE (NEGATIVE); OCCULT BLOOD URINE 3+ (NEGATIVE); PH URINE 6.5 (4.5-8.0); PROTEIN URINE 2+ (NEGATIVE); SPECIFIC GRAVITY URINE 1.014 (1.005-1.030); UROBILINOGEN URINE 0.2 E.U./dL (0.2-1.0)
[2018-08-27 23:47] LABS: HEMATOCRIT. 24.2 % (42.0-52.0); HEMOGLOBIN. 8.3 g/dL (14.0-18.0); MEAN CORPUSCULAR HEMOGLOBIN 30.2 pg (28.0-32.0); MEAN CORPUSCULAR VOLUME 87.9 fL (80.0-94.0); MEAN PLATELET VOLUME 8.4 fl (7.4-10.4); PLATELET 115 x1000/uL (130-400); RED BLOOD CELL COUNT 2.75 mill/uL (4.7-6.1); RED CELL DISTRIBUTION WIDTH 14.6 % (11.6-14.6)
[2018-08-27] MEDS: IPRATROPIUM/ALBUTEROL 0.5-3(2.5)MG/3ML NEB HHN SCH (23:54)
[2018-08-27 23:56] LABS: PHOSPHORUS 3.3 mg/dL (2.5-4.9)
[2018-08-28] VITALS (79 sets, daily range): BP systolic 84–278; BP diastolic 10–277
[2018-08-28] MEDS ORDERED: CEFAZOLIN 1000MG PREMIX 50 ML IV SCH
[2018-08-28 00:17] LABS: BG BASE EXCESS 1.6 mmol/L (-2.0-2.0); BG CARBOXYHEMOGLOBIN 0.3 % (0.5-1.5); BG DEOXYHEMOGLOBIN 2.2 % (0.0-5.0); BG FRACTION INSPIRED OXYGEN 50; BG HCO3 ACT 24.9 mmol/L (22.0-26.0); BG METHEMOGLOBIN 0.5 % (0.0-1.5); BG OXYGEN SATURATION 97.8 % (92.0-98.5); BG PCO2 33.6 mmHg (35.0-45.0); BG PH 7.488 (7.350-7.450); BG PO2 112.9 mmHg (75.0-100.0); BG PRESSURE SUPPORT 5; BG SAMPLE SITE A-LINE; BG TOTAL HEMOGLOBIN 8.5 g/dL (12.0-18.0); BG VENT MODE MASK - CPAP
[2018-08-28 00:27] LABS: PLATELET ESTIMATE SLIGHTLY DECREASED
[2018-08-28] MEDS: BLOOD SUGAR DIAGNOSTIC STRIP TEST SCH ×24 (00:43→23:00)
[2018-08-28] MEDS: SODIUM CHLORIDE 0.45% 1,000 ML IV SCH (01:08)
[2018-08-28 02:10] LABS: BG BASE EXCESS 0.2 mmol/L (-2.0-2.0); BG CARBOXYHEMOGLOBIN 0.3 % (0.5-1.5); BG DEOXYHEMOGLOBIN 1.9 % (0.0-5.0); BG FRACTION INSPIRED OXYGEN 40; BG HCO3 ACT 22.8 mmol/L (22.0-26.0); BG METHEMOGLOBIN 0.5 % (0.0-1.5); BG OXYGEN SATURATION 98.1 % (92.0-98.5); BG OXYHEMOGLOBIN 97.3 % (94.0-97.0); BG PCO2 28.7 mmHg (35.0-45.0); BG PH 7.517 (7.350-7.450); BG PO2 140.3 mmHg (75.0-100.0); BG SAMPLE SITE A-LINE; BG TOTAL HEMOGLOBIN 8.1 g/dL (12.0-18.0); BG VENT MODE MASK - AEROSOL
[2018-08-28] MEDS: MORPHINE SULFATE 2 MG/ML CPJ (NOT FOR IM USE) IV PRN (02:37)
[2018-08-28] MEDS: IPRATROPIUM/ALBUTEROL 0.5-3(2.5)MG/3ML NEB HHN SCH ×4 (04:11→20:46)
[2018-08-28 05:30] LABS: HEMATOCRIT. 22.7 % (42.0-52.0); HEMOGLOBIN. 7.7 g/dL (14.0-18.0); MEAN CORPUSCULAR HEMOGLOBIN 29.8 pg (28.0-32.0); MEAN CORPUSCULAR VOLUME 87.9 fL (80.0-94.0); MEAN PLATELET VOLUME 8.7 fl (7.4-10.4); PLATELET 113 x1000/uL (130-400); RED BLOOD CELL COUNT 2.59 mill/uL (4.7-6.1); RED CELL DISTRIBUTION WIDTH 14.8 % (11.6-14.6)
[2018-08-28 05:44] LABS: PHOSPHORUS 3.9 mg/dL (2.5-4.9)
[2018-08-28] MEDS ORDERED: CEFAZOLIN 500MG in DEXTROSE 5% WATER 50ML IV SCH (07:00)
[2018-08-28 07:25] LABS: PLATELET ESTIMATE DECREASED
[2018-08-28] MEDS: HYDROMORPHONE HCL/PF 2MG/ML CPJ IV PRN ×5 (07:52→22:45)
[2018-08-28 08:02] LABS: BG BASE EXCESS -2.8 mmol/L (-2.0-2.0); BG CARBOXYHEMOGLOBIN 0.3 % (0.5-1.5); BG DEOXYHEMOGLOBIN 4.2 % (0.0-5.0); BG FRACTION INSPIRED OXYGEN 32; BG HCO3 ACT 20.9 mmol/L (22.0-26.0); BG METHEMOGLOBIN 0.7 % (0.0-1.5); BG OXYGEN SATURATION 95.8 % (92.0-98.5); BG OXYHEMOGLOBIN 94.8 % (94.0-97.0); BG PCO2 31.4 mmHg (35.0-45.0); BG PH 7.441 (7.350-7.450); BG PO2 87.4 mmHg (75.0-100.0); BG SAMPLE SITE A-LINE; BG TOTAL HEMOGLOBIN 8.1 g/dL (12.0-18.0); BG VENT MODE NASAL CANNULA
[2018-08-28] MEDS: DOCUSATE SODIUM 100MG CAPSULE PO SCH ×2 (08:48→17:15)
[2018-08-28] MEDS ORDERED: FAMOTIDINE 20MG/2ML VIAL IV SCH (09:00)
[2018-08-28] MEDS ORDERED: CEFEPIME HCL 1000MG/VIAL INJ IM ONE (11:30)
[2018-08-28] MEDS ORDERED: CEFEPIME 1GM PREMIX 50 ML IV SCH (13:00)
[2018-08-28] MEDS ORDERED: CEFEPIME 1,000 MG in DEXTROSE 5% WATER 50 ML IV SCH (16:00)
[2018-08-28] MEDS: INSULIN REGULAR (DRIP) 100 UNITS in SODIUM CHLORIDE 0.9% 99 ML IV SCH (18:03)
[2018-08-28] MEDS: FINASTERIDE 5MG TABLET PO SCH (21:01)
[2018-08-28] MEDS: TAMSULOSIN HCL 0.4MG SR CAPSULE PO SCH (21:02)
[2018-08-28] MEDS: CARVEDILOL 3.125 MG TABLET PO SCH (21:02)
[2018-08-29] VITALS (63 sets, daily range): BP systolic 108–160; BP diastolic 49–92
[2018-08-29] MEDS: BLOOD SUGAR DIAGNOSTIC STRIP TEST SCH ×24 (00:17→23:00)
[2018-08-29] MEDS: IPRATROPIUM/ALBUTEROL 0.5-3(2.5)MG/3ML NEB HHN SCH ×7 (00:22→20:32)
[2018-08-29] MEDS: SODIUM CHLORIDE 0.45% 1,000 ML IV SCH (00:57)
[2018-08-29] MEDS: HYDROMORPHONE HCL/PF 2MG/ML CPJ IV PRN ×3 (03:54→22:37)
[2018-08-29 05:44] LABS: HEMATOCRIT. 25.7 % (42.0-52.0); HEMOGLOBIN. 8.7 g/dL (14.0-18.0); MEAN CORPUSCULAR HEMOGLOBIN 30.2 pg (28.0-32.0); MEAN CORPUSCULAR VOLUME 89.3 fL (80.0-94.0); MEAN PLATELET VOLUME 9.1 fl (7.4-10.4); PLATELET 95 x1000/uL (130-400); RED BLOOD CELL COUNT 2.87 mill/uL (4.7-6.1); RED CELL DISTRIBUTION WIDTH 15.1 % (11.6-14.6)
[2018-08-29 05:56] LABS: PHOSPHORUS 5.5 mg/dL (2.5-4.9)
[2018-08-29] MEDS ORDERED: AMIODARONE HCL 900 MG in DEXT 5% WATER 482 ML IV SCH (06:00)
[2018-08-29] MEDS ORDERED: AMIODARONE HCL 150 MG in DEXT 5% WATER 100 ML IV NR (06:02)
[2018-08-29] MEDS ORDERED: ASPIRIN 81MG EC TABLET PO NR (08:00)
[2018-08-29] MEDS: FAMOTIDINE 20MG TABLET PO SCH (08:06)
[2018-08-29] MEDS: CARVEDILOL 3.125 MG TABLET PO SCH ×3 (08:07→21:18)
[2018-08-29] MEDS: DOCUSATE SODIUM 100MG CAPSULE PO SCH ×2 (08:07→17:18)
[2018-08-29] MEDS: BACITRACIN 15GM TUBE TOP SCH ×2 (08:09→17:19)
[2018-08-29] MEDS: CEFEPIME 500 MG in DEXTROSE 5% WATER 50 ML IV SCH (08:32)
[2018-08-29 09:21] LABS: PLATELET ESTIMATE DECREASED
[2018-08-29] MEDS ORDERED: ENOXAPARIN 80MG/0.8ML SYR SUBCUT NR (09:30)
[2018-08-29] MEDS ORDERED: METOPROLOL TARTRATE 5MG/5ML VIAL IV NR (09:30)
[2018-08-29] MEDS: IRON SUCROSE COMPLEX 100 MG/5 ML ML IV SCH (17:18)
[2018-08-29] MEDS ORDERED: DEXTROSE 50% WATER 50ML SYRINGE IV PRN (18:30)
[2018-08-29] MEDS: INSULIN REGULAR (DRIP) 100 UNITS in SODIUM CHLORIDE 0.9% 99 ML IV SCH (19:08)
[2018-08-29] MEDS: EPOETIN ALFA 4000UNITS/ML VIAL SUBCUT SCH (21:17)
[2018-08-29] MEDS: TAMSULOSIN HCL 0.4MG SR CAPSULE PO SCH (21:18)
[2018-08-29] MEDS: FINASTERIDE 5MG TABLET PO SCH (21:18)
[2018-08-30] VITALS (53 sets, daily range): BP systolic 102–150; BP diastolic 60–85
[2018-08-30] MEDS: IPRATROPIUM/ALBUTEROL 0.5-3(2.5)MG/3ML NEB HHN SCH ×6 (00:20→21:07)
[2018-08-30] MEDS: SODIUM CHLORIDE 0.45% 1,000 ML IV SCH (00:45)
[2018-08-30] MEDS: BLOOD SUGAR DIAGNOSTIC STRIP TEST SCH ×15 (01:00→21:03)
[2018-08-30] MEDS ORDERED: AMIODARONE HCL 450 MG in DEXT 5% WATER 241 ML IV SCH (03:45)
[2018-08-30 05:42] LABS: HEMATOCRIT. 26.9 % (42.0-52.0); HEMOGLOBIN. 8.8 g/dL (14.0-18.0); MEAN CORPUSCULAR HEMOGLOBIN 30.1 pg (28.0-32.0); MEAN CORPUSCULAR VOLUME 91.5 fL (80.0-94.0); MEAN PLATELET VOLUME 9.5 fl (7.4-10.4); PLATELET 90 x1000/uL (130-400); RED BLOOD CELL COUNT 2.94 mill/uL (4.7-6.1); RED CELL DISTRIBUTION WIDTH 15.1 % (11.6-14.6)
[2018-08-30 06:04] LABS: PHOSPHORUS 5.4 mg/dL (2.5-4.9)
[2018-08-30] MEDS: CARVEDILOL 3.125 MG TABLET PO SCH (06:48)
[2018-08-30] MEDS: DOCUSATE SODIUM 100MG CAPSULE PO SCH ×2 (08:13→16:33)
[2018-08-30] MEDS: ASPIRIN 81MG TABLET PO SCH (08:13)
[2018-08-30] MEDS: CEFEPIME 500 MG in DEXTROSE 5% WATER 50 ML IV SCH (08:13)
[2018-08-30] MEDS: FAMOTIDINE 20MG TABLET PO SCH (08:13)
[2018-08-30] MEDS: BACITRACIN 15GM TUBE TOP SCH ×2 (08:14→16:35)
[2018-08-30 08:29] LABS: PLATELET ESTIMATE DECREASED
[2018-08-30] MEDS: INSULIN LISPRO 100 UNITS/ML SUBCUT SCH ×4 (09:54→21:00)
[2018-08-30] MEDS ORDERED: INSULIN GLARGINE UD 100 UNITS/ML SYR SUBCUT SCH (10:00)
[2018-08-30] MEDS: AMIODARONE HCL 200 MG TABLET PO SCH ×2 (11:13→21:07)
[2018-08-30] MEDS: CALCIUM ACETATE 667MG CAPSULE PO SCH ×2 (13:25→18:09)
[2018-08-30] MEDS: IRON SUCROSE COMPLEX 100 MG/5 ML ML IV SCH (16:33)
[2018-08-30] MEDS: TAMSULOSIN HCL 0.4MG SR CAPSULE PO SCH (21:06)
[2018-08-30] MEDS: CARVEDILOL 6.25 MG TABLET PO SCH (21:06)
[2018-08-30] MEDS: EPOETIN ALFA 4000UNITS/ML VIAL SUBCUT SCH (21:06)
[2018-08-30] MEDS: FINASTERIDE 5MG TABLET PO SCH (21:07)
[2018-08-31] VITALS (12 sets, daily range): BP systolic 92–135; BP diastolic 56–80
[2018-08-31] MEDS: IPRATROPIUM/ALBUTEROL 0.5-3(2.5)MG/3ML NEB HHN SCH ×5 (00:30→21:30)
[2018-08-31 05:48] LABS: CHLORIDE 101 mEq/L (98-107)
[2018-08-31 05:57] LABS: PHOSPHORUS 3.2 mg/dL (2.5-4.9)
[2018-08-31 06:00] LABS: HEMATOCRIT. 25.2 % (42.0-52.0); HEMOGLOBIN. 8.4 g/dL (14.0-18.0); MEAN CORPUSCULAR HEMOGLOBIN 30.5 pg (28.0-32.0); MEAN PLATELET VOLUME 8.9 fl (7.4-10.4); PLATELET 109 x1000/uL (130-400); RED BLOOD CELL COUNT 2.77 mill/uL (4.7-6.1); RED CELL DISTRIBUTION WIDTH 14.8 % (11.6-14.6)
[2018-08-31] MEDS: BLOOD SUGAR DIAGNOSTIC STRIP TEST SCH ×4 (06:58→20:35)
[2018-08-31] MEDS: INSULIN LISPRO 100 UNITS/ML SUBCUT SCH ×4 (07:20→20:24)
[2018-08-31] MEDS: CALCIUM ACETATE 667MG CAPSULE PO SCH ×3 (08:42→17:45)
[2018-08-31] MEDS: BACITRACIN 15GM TUBE TOP SCH ×2 (08:45→17:51)
[2018-08-31] MEDS: CARVEDILOL 6.25 MG TABLET PO SCH ×2 (08:45→20:36)
[2018-08-31] MEDS: FAMOTIDINE 20MG TABLET PO SCH (08:45)
[2018-08-31] MEDS: AMIODARONE HCL 200 MG TABLET PO SCH ×2 (08:45→20:35)
[2018-08-31] MEDS: ASPIRIN 81MG TABLET PO SCH (08:45)
[2018-08-31] MEDS: DOCUSATE SODIUM 100MG CAPSULE PO SCH ×2 (08:48→17:45)
[2018-08-31] MEDS ORDERED: AMIODARONE HCL 200 MG TABLET PO SCH (09:00)
[2018-08-31] MEDS: CEFEPIME 500 MG in DEXTROSE 5% WATER 50 ML IV SCH (15:15)
[2018-08-31] MEDS: IRON SUCROSE COMPLEX 100 MG/5 ML ML IV SCH (17:45)
[2018-08-31] MEDS ORDERED: ENOXAPARIN 30MG/0.3ML SYR SUBCUT ONE (17:45)
[2018-08-31 19:50] LABS: PLATELET ESTIMATE DECREASED
[2018-08-31] MEDS: FINASTERIDE 5MG TABLET PO SCH (20:35)
[2018-08-31] MEDS ORDERED: EPOETIN ALFA 4000UNITS/ML VIAL SUBCUT NR (21:00)
[2018-08-31] MEDS: TAMSULOSIN HCL 0.4MG SR CAPSULE PO SCH (21:37)
[2018-09-01] VITALS (12 sets, daily range): BP systolic 96–130; BP diastolic 26–86
[2018-09-01] MEDS: IPRATROPIUM/ALBUTEROL 0.5-3(2.5)MG/3ML NEB HHN SCH ×7 (00:52→20:39)
[2018-09-01] MEDS: BLOOD SUGAR DIAGNOSTIC STRIP TEST SCH ×4 (06:28→20:44)
[2018-09-01 06:30] LABS: HEMATOCRIT. 24.2 % (42.0-52.0); HEMOGLOBIN. 8.1 g/dL (14.0-18.0); MEAN CORPUSCULAR HEMOGLOBIN 30.6 pg (28.0-32.0); MEAN CORPUSCULAR VOLUME 91.8 fL (80.0-94.0); PLATELET 120 x1000/uL (130-400); RED BLOOD CELL COUNT 2.64 mill/uL (4.7-6.1); RED CELL DISTRIBUTION WIDTH 14.6 % (11.6-14.6)
[2018-09-01] MEDS: INSULIN LISPRO 100 UNITS/ML SUBCUT SCH ×4 (07:20→20:44)
[2018-09-01] MEDS: CALCIUM ACETATE 667MG CAPSULE PO SCH ×3 (07:43→18:52)
[2018-09-01] MEDS ORDERED: AMIODARONE HCL 200 MG TABLET PO SCH (09:00)
[2018-09-01] MEDS: ASPIRIN 81MG TABLET PO SCH (09:00)
[2018-09-01] MEDS: DOCUSATE SODIUM 100MG CAPSULE PO SCH ×2 (09:28→18:52)
[2018-09-01] MEDS: FAMOTIDINE 20MG TABLET PO SCH (09:28)
[2018-09-01] MEDS: BACITRACIN 15GM TUBE TOP SCH ×2 (09:28→17:43)
[2018-09-01] MEDS: AMIODARONE HCL 200 MG TABLET PO SCH ×2 (09:29→21:06)
[2018-09-01] MEDS: CARVEDILOL 6.25 MG TABLET PO SCH ×2 (09:29→22:00)
[2018-09-01] MEDS ORDERED: LORAZEPAM 2MG/ML CPJ IV NR (09:45)
[2018-09-01] MEDS ORDERED: LIDOCAINE HCL 1% 20ML VIAL (Pyxis) INJ ONE (13:00)
[2018-09-01] MEDS ORDERED: SODIUM BICARBONATE 4% (2.4MEQ) 5ML VIAL IV ONE (13:00)
[2018-09-01] MEDS: CEFEPIME 500 MG in DEXTROSE 5% WATER 50 ML IV SCH (14:09)
[2018-09-01] MEDS ORDERED: TUBERCULIN,PURIF.PROT.DERIV. 5 TU/0.1 ML SYR ID ONE (15:30)
[2018-09-01 17:19] LABS: NUCLEATED RED BLOOD CELLS 1 /100 WBC
[2018-09-01 17:20] LABS: PLATELET ESTIMATE DECREASED
[2018-09-01] MEDS: ENOXAPARIN 30MG/0.3ML SYR SUBCUT SCH (18:53)
[2018-09-01] MEDS: IRON SUCROSE COMPLEX 100 MG/5 ML ML IV SCH (18:58)
[2018-09-01] MEDS ORDERED: EPOETIN ALFA 4000UNITS/ML VIAL SUBCUT NR (21:00)
[2018-09-01] MEDS: FINASTERIDE 5MG TABLET PO SCH (21:06)
[2018-09-01] MEDS: EPOETIN ALFA 4000UNITS/ML VIAL SUBCUT SCH (21:07)
[2018-09-01] MEDS: TAMSULOSIN HCL 0.4MG SR CAPSULE PO SCH (21:07)
[2018-09-02] VITALS (13 sets, daily range): BP systolic 95–128; BP diastolic 42–76
[2018-09-02] MEDS: IPRATROPIUM/ALBUTEROL 0.5-3(2.5)MG/3ML NEB HHN SCH ×2 (04:13→20:45)
[2018-09-02] MEDS: BLOOD SUGAR DIAGNOSTIC STRIP TEST SCH ×4 (05:57→21:16)
[2018-09-02 06:10] LABS: HEMATOCRIT. 25.4 % (42.0-52.0); HEMOGLOBIN. 8.3 g/dL (14.0-18.0); MEAN CORPUSCULAR HEMOGLOBIN 30.5 pg (28.0-32.0); MEAN CORPUSCULAR VOLUME 92.9 fL (80.0-94.0); MEAN PLATELET VOLUME 9.1 fl (7.4-10.4); PLATELET 136 x1000/uL (130-400); RED BLOOD CELL COUNT 2.74 mill/uL (4.7-6.1); RED CELL DISTRIBUTION WIDTH 14.9 % (11.6-14.6)
[2018-09-02 06:16] LABS: CHLORIDE 105 mEq/L (98-107)
[2018-09-02] MEDS: INSULIN LISPRO 100 UNITS/ML SUBCUT SCH ×4 (07:20→21:00)
[2018-09-02] MEDS: CALCIUM ACETATE 667MG CAPSULE PO SCH ×3 (07:20→18:01)
[2018-09-02] MEDS: DOCUSATE SODIUM 100MG CAPSULE PO SCH ×2 (09:00→17:00)
[2018-09-02] MEDS: ASPIRIN 81MG TABLET PO SCH (09:05)
[2018-09-02] MEDS: BACITRACIN 15GM TUBE TOP SCH ×2 (09:06→18:01)
[2018-09-02] MEDS: SERTRALINE HCL 25MG TABLET PO SCH (09:06)
[2018-09-02] MEDS: AMIODARONE HCL 200 MG TABLET PO SCH ×2 (09:06→21:29)
[2018-09-02] MEDS: ENOXAPARIN 30MG/0.3ML SYR SUBCUT SCH (09:06)
[2018-09-02] MEDS: FAMOTIDINE 20MG TABLET PO SCH (09:06)
[2018-09-02] MEDS: CARVEDILOL 6.25 MG TABLET PO SCH ×2 (09:06→21:00)
[2018-09-02 09:53] LABS: PLATELET ESTIMATE NORMAL
[2018-09-02] MEDS: IRON SUCROSE COMPLEX 100 MG/5 ML ML IV SCH (18:01)
[2018-09-02] MEDS ORDERED: CEFEPIME 500 MG in DEXTROSE 5% WATER 50 ML IV SCH (18:30)
[2018-09-02] MEDS: TAMSULOSIN HCL 0.4MG SR CAPSULE PO SCH (21:29)
[2018-09-02] MEDS: FINASTERIDE 5MG TABLET PO SCH (21:29)
[2018-09-03] VITALS (16 sets, daily range): BP systolic 96–135; BP diastolic 59–80
[2018-09-03] MEDS ORDERED: ACETAMINOPHEN 325MG TABLET PO PRN (01:30)
[2018-09-03] MEDS ORDERED: HYDROCODONE/ACETAMINOPHEN 5/325MG TABLET PO PRN (01:30)
[2018-09-03] MEDS: IPRATROPIUM/ALBUTEROL 0.5-3(2.5)MG/3ML NEB HHN SCH ×7 (04:00→23:53)
[2018-09-03] MEDS: BLOOD SUGAR DIAGNOSTIC STRIP TEST SCH ×4 (05:59→21:14)
[2018-09-03 06:29] LABS: HEMATOCRIT. 22.9 % (42.0-52.0); HEMOGLOBIN. 7.6 g/dL (14.0-18.0); MEAN CORPUSCULAR HEMOGLOBIN 31.1 pg (28.0-32.0); MEAN CORPUSCULAR VOLUME 93.9 fL (80.0-94.0); MEAN PLATELET VOLUME 9.2 fl (7.4-10.4); PLATELET 160 x1000/uL (130-400); RED BLOOD CELL COUNT 2.44 mill/uL (4.7-6.1); RED CELL DISTRIBUTION WIDTH 14.8 % (11.6-14.6)
[2018-09-03] MEDS: INSULIN LISPRO 100 UNITS/ML SUBCUT SCH ×4 (07:20→21:00)
[2018-09-03] MEDS: ASPIRIN 81MG TABLET PO SCH (09:18)
[2018-09-03] MEDS: CALCIUM ACETATE 667MG CAPSULE PO SCH ×3 (09:18→17:59)
[2018-09-03] MEDS: FAMOTIDINE 20MG TABLET PO SCH (09:18)
[2018-09-03] MEDS: SERTRALINE HCL 25MG TABLET PO SCH (09:18)
[2018-09-03] MEDS: DOCUSATE SODIUM 100MG CAPSULE PO SCH ×2 (09:18→17:59)
[2018-09-03] MEDS: ENOXAPARIN 30MG/0.3ML SYR SUBCUT SCH (09:19)
[2018-09-03] MEDS: CARVEDILOL 6.25 MG TABLET PO SCH ×2 (09:19→21:22)
[2018-09-03] MEDS: BACITRACIN 15GM TUBE TOP SCH ×2 (09:20→17:59)
[2018-09-03] MEDS: AMIODARONE HCL 200 MG TABLET PO SCH ×2 (09:24→21:23)
[2018-09-03 13:49] LABS: PLATELET ESTIMATE NORMAL
[2018-09-03] MEDS: IRON SUCROSE COMPLEX 100 MG/5 ML ML IV SCH (17:59)
[2018-09-03] MEDS: FINASTERIDE 5MG TABLET PO SCH (21:23)
[2018-09-03] MEDS: TAMSULOSIN HCL 0.4MG SR CAPSULE PO SCH (21:23)
[2018-09-03] MEDS: EPOETIN ALFA 4000UNITS/ML VIAL SUBCUT SCH (21:24)
[2018-09-04] VITALS (13 sets, daily range): BP systolic 104–144; BP diastolic 34–91
[2018-09-04] MEDS: IPRATROPIUM/ALBUTEROL 0.5-3(2.5)MG/3ML NEB HHN SCH ×6 (00:30→20:15)
[2018-09-04 06:41] LABS: HEMATOCRIT 27.9 % (42.0-52.0); HEMOGLOBIN 9.4 g/dL (14.0-18.0); MEAN CORPUSCULAR HEMOGLOBIN 30.8 pg (28.0-32.0); MEAN CORPUSCULAR VOLUME 91.3 fL (80.0-94.0); PLATELET 180 x1000/uL (130-400); RED BLOOD CELL COUNT 3.05 mill/uL (4.7-6.1); RED CELL DISTRIBUTION WIDTH 15.8 % (11.6-14.6)
[2018-09-04] MEDS: BLOOD SUGAR DIAGNOSTIC STRIP TEST SCH ×4 (06:43→21:00)
[2018-09-04] MEDS: INSULIN LISPRO 100 UNITS/ML SUBCUT SCH ×4 (07:20→21:00)
[2018-09-04] MEDS: AMIODARONE HCL 200 MG TABLET PO SCH ×2 (08:45→21:00)
[2018-09-04] MEDS: FAMOTIDINE 20MG TABLET PO SCH (08:46)
[2018-09-04] MEDS: CALCIUM ACETATE 667MG CAPSULE PO SCH ×3 (08:46→17:00)
[2018-09-04] MEDS: DOCUSATE SODIUM 100MG CAPSULE PO SCH ×2 (08:46→17:00)
[2018-09-04] MEDS: SERTRALINE HCL 25MG TABLET PO SCH (08:46)
[2018-09-04] MEDS: ASPIRIN 81MG TABLET PO SCH (08:46)
[2018-09-04] MEDS: BACITRACIN 15GM TUBE TOP SCH ×2 (08:47→17:07)
[2018-09-04] MEDS: CARVEDILOL 6.25 MG TABLET PO SCH ×2 (08:47→21:02)
[2018-09-04] MEDS: ENOXAPARIN 30MG/0.3ML SYR SUBCUT SCH (08:47)
[2018-09-04] MEDS: IRON SUCROSE COMPLEX 100 MG/5 ML ML IV SCH (17:07)
[2018-09-04] MEDS: FINASTERIDE 5MG TABLET PO SCH (21:02)
[2018-09-04] MEDS: TAMSULOSIN HCL 0.4MG SR CAPSULE PO SCH (21:02)
[2018-09-05] VITALS (12 sets, daily range): BP systolic 109–149; BP diastolic 62–83
[2018-09-05] MEDS: IPRATROPIUM/ALBUTEROL 0.5-3(2.5)MG/3ML NEB HHN SCH ×6 (00:30→21:32)
[2018-09-05] MEDS: BLOOD SUGAR DIAGNOSTIC STRIP TEST SCH ×4 (06:10→20:26)
[2018-09-05] MEDS: INSULIN LISPRO 100 UNITS/ML SUBCUT SCH ×4 (06:10→20:26)
[2018-09-05 08:05] LABS: HEMATOCRIT. 27.8 % (42.0-52.0); HEMOGLOBIN. 9.2 g/dL (14.0-18.0); MEAN CORPUSCULAR HEMOGLOBIN 30.7 pg (28.0-32.0); MEAN CORPUSCULAR VOLUME 92.2 fL (80.0-94.0); MEAN PLATELET VOLUME 8.6 fl (7.4-10.4); PLATELET 192 x1000/uL (130-400); RED BLOOD CELL COUNT 3.01 mill/uL (4.7-6.1); RED CELL DISTRIBUTION WIDTH 15.9 % (11.6-14.6)
[2018-09-05] MEDS: SERTRALINE HCL 25MG TABLET PO SCH (08:17)
[2018-09-05] MEDS: CALCIUM ACETATE 667MG CAPSULE PO SCH ×3 (08:31→17:23)
[2018-09-05] MEDS: AMIODARONE HCL 200 MG TABLET PO SCH ×2 (08:31→20:33)
[2018-09-05] MEDS: FAMOTIDINE 20MG TABLET PO SCH (08:31)
[2018-09-05] MEDS: CARVEDILOL 6.25 MG TABLET PO SCH ×2 (08:31→20:33)
[2018-09-05] MEDS: DOCUSATE SODIUM 100MG CAPSULE PO SCH ×2 (08:31→17:23)
[2018-09-05] MEDS: BACITRACIN 15GM TUBE TOP SCH ×2 (08:32→17:23)
[2018-09-05] MEDS: ASPIRIN 81MG TABLET PO SCH (08:32)
[2018-09-05] MEDS: ENOXAPARIN 30MG/0.3ML SYR SUBCUT SCH ×2 (08:32→08:47)
[2018-09-05 08:38] LABS: CHLORIDE 104 mEq/L (98-107)
[2018-09-05 13:56] LABS: PLATELET ESTIMATE NORMAL
[2018-09-05] MEDS: TAMSULOSIN HCL 0.4MG SR CAPSULE PO SCH (20:33)
[2018-09-05] MEDS: FINASTERIDE 5MG TABLET PO SCH (20:33)
[2018-09-06] VITALS (12 sets, daily range): BP systolic 97–146; BP diastolic 57–89
[2018-09-06] MEDS: IPRATROPIUM/ALBUTEROL 0.5-3(2.5)MG/3ML NEB HHN SCH ×3 (01:01→11:23)
[2018-09-06] MEDS: BLOOD SUGAR DIAGNOSTIC STRIP TEST SCH ×4 (06:33→20:31)
[2018-09-06] MEDS: INSULIN LISPRO 100 UNITS/ML SUBCUT SCH ×4 (06:33→20:32)
[2018-09-06 06:39] LABS: HEMATOCRIT 27.2 % (42.0-52.0); MEAN CORPUSCULAR HEMOGLOBIN 30.8 pg (28.0-32.0); MEAN CORPUSCULAR VOLUME 92.8 fL (80.0-94.0); PLATELET 205 x1000/uL (130-400); RED BLOOD CELL COUNT 2.92 mill/uL (4.7-6.1); RED CELL DISTRIBUTION WIDTH 15.8 % (11.6-14.6)
[2018-09-06] MEDS: ASPIRIN 81MG TABLET PO SCH (09:49)
[2018-09-06] MEDS: FAMOTIDINE 20MG TABLET PO SCH (09:49)
[2018-09-06] MEDS: CALCIUM ACETATE 667MG CAPSULE PO SCH ×3 (09:49→18:35)
[2018-09-06] MEDS: DOCUSATE SODIUM 100MG CAPSULE PO SCH ×2 (09:49→17:00)
[2018-09-06] MEDS: SERTRALINE HCL 25MG TABLET PO SCH (09:49)
[2018-09-06] MEDS: CARVEDILOL 6.25 MG TABLET PO SCH ×2 (09:51→20:47)
[2018-09-06] MEDS: AMIODARONE HCL 200 MG TABLET PO SCH ×2 (09:51→20:47)
[2018-09-06] MEDS: BACITRACIN 15GM TUBE TOP SCH ×2 (12:35→17:00)
[2018-09-06] MEDS: ENOXAPARIN 30MG/0.3ML SYR SUBCUT SCH (14:04)
[2018-09-06] MEDS ORDERED: IPRATROPIUM/ALBUTEROL 0.5-3(2.5)MG/3ML NEB HHN PRN (14:45)
[2018-09-06] MEDS: TAMSULOSIN HCL 0.4MG SR CAPSULE PO SCH (20:47)
[2018-09-06] MEDS: FINASTERIDE 5MG TABLET PO SCH (20:47)
[2018-09-07] VITALS (13 sets, daily range): BP systolic 100–130; BP diastolic 47–78
[2018-09-07] MEDS: INSULIN LISPRO 100 UNITS/ML SUBCUT SCH ×4 (06:35→21:00)
[2018-09-07] MEDS: BLOOD SUGAR DIAGNOSTIC STRIP TEST SCH ×4 (06:35→20:48)
[2018-09-07 07:03] LABS: INR 1.1
[2018-09-07 07:08] LABS: HEMATOCRIT. 28.5 % (42.0-52.0); HEMOGLOBIN. 9.4 g/dL (14.0-18.0); MEAN CORPUSCULAR VOLUME 93.8 fL (80.0-94.0); MEAN PLATELET VOLUME 8.5 fl (7.4-10.4); PLATELET 204 x1000/uL (130-400); RED BLOOD CELL COUNT 3.03 mill/uL (4.7-6.1)
[2018-09-07] MEDS: CALCIUM ACETATE 667MG CAPSULE PO SCH ×3 (07:20→16:39)
[2018-09-07] MEDS: SERTRALINE HCL 25MG TABLET PO SCH (09:00)
[2018-09-07] MEDS: FAMOTIDINE 20MG TABLET PO SCH (09:00)
[2018-09-07] MEDS: ASPIRIN 81MG TABLET PO SCH (09:00)
[2018-09-07] MEDS: DOCUSATE SODIUM 100MG CAPSULE PO SCH ×2 (09:00→16:39)
[2018-09-07] MEDS: ENOXAPARIN 30MG/0.3ML SYR SUBCUT SCH (09:00)
[2018-09-07] MEDS: BACITRACIN 15GM TUBE TOP SCH ×2 (09:54→16:40)
[2018-09-07] MEDS: AMIODARONE HCL 200 MG TABLET PO SCH ×4 (10:23→21:08)
[2018-09-07] MEDS: CARVEDILOL 6.25 MG TABLET PO SCH ×2 (10:24→21:08)
[2018-09-07] MEDS ORDERED: AMIODARONE HCL 150 MG in DEXT 5% WATER 100 ML IV NR (11:30)
[2018-09-07] MEDS ORDERED: METOPROLOL TARTRATE 5MG/5ML VIAL IV NR (12:00)
[2018-09-07 13:03] LABS: PLATELET ESTIMATE NORMAL
[2018-09-07 14:11] LABS: HEPATITIS B SURFACE AB < 3.1 mIU/mL
[2018-09-07 14:17] LABS: HEPATITIS B SURFACE ANTIGEN NEGATIVE
[2018-09-07] MEDS: TAMSULOSIN HCL 0.4MG SR CAPSULE PO SCH (21:07)
[2018-09-07] MEDS: FINASTERIDE 5MG TABLET PO SCH (21:08)
[2018-09-08] VITALS (11 sets, daily range): BP systolic 106–126; BP diastolic 55–72
[2018-09-08] MEDS: BLOOD SUGAR DIAGNOSTIC STRIP TEST SCH ×4 (05:55→21:54)
[2018-09-08] MEDS: INSULIN LISPRO 100 UNITS/ML SUBCUT SCH ×4 (07:20→21:00)
[2018-09-08 07:41] LABS: HEMATOCRIT. 27.5 % (42.0-52.0); MEAN CORPUSCULAR HEMOGLOBIN 30.9 pg (28.0-32.0); MEAN CORPUSCULAR VOLUME 94.4 fL (80.0-94.0); MEAN PLATELET VOLUME 8.1 fl (7.4-10.4); PLATELET 182 x1000/uL (130-400); RED BLOOD CELL COUNT 2.92 mill/uL (4.7-6.1); RED CELL DISTRIBUTION WIDTH 17.4 % (11.6-14.6)
[2018-09-08 08:07] LABS: CHLORIDE 106 mEq/L (98-107)
[2018-09-08] MEDS: SERTRALINE HCL 25MG TABLET PO SCH (08:07)
[2018-09-08] MEDS: FAMOTIDINE 20MG TABLET PO SCH (08:50)
[2018-09-08] MEDS: DOCUSATE SODIUM 100MG CAPSULE PO SCH ×2 (08:50→16:34)
[2018-09-08] MEDS: CARVEDILOL 6.25 MG TABLET PO SCH ×2 (08:50→21:48)
[2018-09-08] MEDS: ASPIRIN 81MG TABLET PO SCH ×2 (08:50→09:00)
[2018-09-08] MEDS: AMIODARONE HCL 200 MG TABLET PO SCH ×2 (08:51→16:34)
[2018-09-08] MEDS: CALCIUM ACETATE 667MG CAPSULE PO SCH ×3 (08:51→16:34)
[2018-09-08] MEDS: ENOXAPARIN 30MG/0.3ML SYR SUBCUT SCH (08:52)
[2018-09-08] MEDS: BACITRACIN 15GM TUBE TOP SCH ×2 (08:53→16:35)
[2018-09-08] MEDS ORDERED: APIXABAN 5 MG TABLET PO SCH (12:00)
[2018-09-08] MEDS: APIXABAN 2.5 MG TABLET PO SCH (17:01)
[2018-09-08 17:42] LABS: PLATELET ESTIMATE NORMAL
[2018-09-08] MEDS: FINASTERIDE 5MG TABLET PO SCH (21:47)
[2018-09-08] MEDS: TAMSULOSIN HCL 0.4MG SR CAPSULE PO SCH (21:47)
[2018-09-09] VITALS (25 sets, daily range): BP systolic 98–140; BP diastolic 57–78
[2018-09-09 06:47] LABS: CHLORIDE 106 mEq/L (98-107)
[2018-09-09] MEDS: BLOOD SUGAR DIAGNOSTIC STRIP TEST SCH ×4 (06:50→21:00)
[2018-09-09] MEDS: INSULIN LISPRO 100 UNITS/ML SUBCUT SCH ×4 (07:20→21:00)
[2018-09-09] MEDS: CALCIUM ACETATE 667MG CAPSULE PO SCH ×3 (07:20→18:02)
[2018-09-09] MEDS ORDERED: CEFAZOLIN 1000MG PREMIX 50 ML IV NR (07:45)
[2018-09-09] MEDS ORDERED: CEFAZOLIN 1000MG PREMIX 50 ML IV ONE (07:48)
[2018-09-09] MEDS ORDERED: FENTANYL CITRATE/PF 50MCG/ML 2ML VIAL ONE (07:49)
[2018-09-09] MEDS ORDERED: SODIUM BICARBONATE 4% (2.4MEQ) 5ML VIAL IV ONE (07:49)
[2018-09-09] MEDS ORDERED: LIDOCAINE HCL 1% 20ML VIAL (Pyxis) INJ ONE (07:49)
[2018-09-09] MEDS ORDERED: MIDAZOLAM HCL 2 MG/2 ML VIAL ONE (08:34)
[2018-09-09] MEDS ORDERED: FENTANYL CITRATE/PF 50MCG/ML 2ML VIAL IV ONE (08:45)
[2018-09-09] MEDS ORDERED: MIDAZOLAM HCL 5 MG/ML VIAL IV ONE (08:45)
[2018-09-09] MEDS: APIXABAN 2.5 MG TABLET PO SCH ×2 (09:29→16:46)
[2018-09-09] MEDS: SERTRALINE HCL 25MG TABLET PO SCH (09:29)
[2018-09-09] MEDS: FAMOTIDINE 20MG TABLET PO SCH (09:29)
[2018-09-09] MEDS: DOCUSATE SODIUM 100MG CAPSULE PO SCH ×2 (09:29→16:46)
[2018-09-09] MEDS: ASPIRIN 81MG TABLET PO SCH (09:29)
[2018-09-09] MEDS: BACITRACIN 15GM TUBE TOP SCH ×2 (09:30→16:48)
[2018-09-09] MEDS: AMIODARONE HCL 200 MG TABLET PO SCH ×2 (09:30→16:46)
[2018-09-09] MEDS: CARVEDILOL 6.25 MG TABLET PO SCH ×2 (09:57→21:23)
[2018-09-09] MEDS ORDERED: ALBUMIN HUMAN 12.5G/250ML (5%) IV NR (11:30)
[2018-09-09] MEDS: FINASTERIDE 5MG TABLET PO SCH (21:23)
[2018-09-09] MEDS: TAMSULOSIN HCL 0.4MG SR CAPSULE PO SCH (21:23)
== END 2018-09-09 22:25 | DRG 853 ==
LOC: ER 07:42 → EDBEDREQ 09:26 → EDBEDREQSVC 09:32 → 6WST 10:29 → EDBEDREQTM 10:40 → EDBEDREQSVC 10:40 → EDBEDREQ 10:40 → ENRESERV 10:46 → MICUSO 18:56 → 3WST 08-22 16:30 → CVICU 08-27 06:40 → 3WST 08-30 22:50
PROVIDERS: ADMIT Internal Medicine; ATTEND Internal Medicine
PROC: 02HV33Z Insertion of Infusion Device into Superior Vena Cava, Percutaneous Approach (ICD-10-PCS; 2018-08-18)
PROC: B548ZZA Ultrasonography of Superior Vena Cava, Guidance (ICD-10-PCS; 2018-08-18)
PROC: 5A1D70Z Performance of Urinary Filtration, Intermittent, Less than 6 Hours Per Day (ICD-10-PCS; 2018-08-18)
PROC: 4A00X4Z Measurement of Central Nervous Electrical Activity, External Approach (ICD-10-PCS; 2018-08-19)
PROC: 5A1D70Z Performance of Urinary Filtration, Intermittent, Less than 6 Hours Per Day (ICD-10-PCS; 2018-08-19)
PROC: 5A1D70Z Performance of Urinary Filtration, Intermittent, Less than 6 Hours Per Day (ICD-10-PCS; 2018-08-20)
PROC: 0DB48ZX Excision of Esophagogastric Junction, Via Natural or Artificial Opening Endoscopic, Diagnostic (ICD-10-PCS; principal; 2018-08-21)
PROC: 0DB68ZX Excision of Stomach, Via Natural or Artificial Opening Endoscopic, Diagnostic (ICD-10-PCS; 2018-08-21)
PROC: 30233N1 Transfusion of Nonautologous Red Blood Cells into Peripheral Vein, Percutaneous Approach (ICD-10-PCS; 2018-08-21)
PROC: 5A1D70Z Performance of Urinary Filtration, Intermittent, Less than 6 Hours Per Day (ICD-10-PCS; 2018-08-22)
PROC: 4A023N7 Measurement of Cardiac Sampling and Pressure, Left Heart, Percutaneous Approach (ICD-10-PCS; 2018-08-25)
PROC: B2111ZZ Fluoroscopy of Multiple Coronary Arteries using Low Osmolar Contrast (ICD-10-PCS; 2018-08-25)
PROC: B2151ZZ Fluoroscopy of Left Heart using Low Osmolar Contrast (ICD-10-PCS; 2018-08-25)
PROC: 5A1D70Z Performance of Urinary Filtration, Intermittent, Less than 6 Hours Per Day (ICD-10-PCS; 2018-08-25)
PROC: 02100Z9 Bypass Coronary Artery, One Artery from Left Internal Mammary, Open Approach (ICD-10-PCS; 2018-08-27)
PROC: 021209W Bypass Coronary Artery, Three Arteries from Aorta with Autologous Venous Tissue, Open Approach (ICD-10-PCS; 2018-08-27)
PROC: 06BQ4ZZ Excision of Left Saphenous Vein, Percutaneous Endoscopic Approach (ICD-10-PCS; 2018-08-27)
PROC: B24BZZ4 Ultrasonography of Heart with Aorta, Transesophageal (ICD-10-PCS; 2018-08-27)
PROC: 5A1221Z Performance of Cardiac Output, Continuous (ICD-10-PCS; 2018-08-27)
PROC: 30233K1 Transfusion of Nonautologous Frozen Plasma into Peripheral Vein, Percutaneous Approach (ICD-10-PCS; 2018-08-27)
PROC: 30233R1 Transfusion of Nonautologous Platelets into Peripheral Vein, Percutaneous Approach (ICD-10-PCS; 2018-08-27)
PROC: 5A1D70Z Performance of Urinary Filtration, Intermittent, Less than 6 Hours Per Day (ICD-10-PCS; 2018-08-28)
PROC: 5A1D70Z Performance of Urinary Filtration, Intermittent, Less than 6 Hours Per Day (ICD-10-PCS; 2018-08-30)
PROC: 02HV33Z Insertion of Infusion Device into Superior Vena Cava, Percutaneous Approach (ICD-10-PCS; 2018-09-01)
PROC: B548ZZA Ultrasonography of Superior Vena Cava, Guidance (ICD-10-PCS; 2018-09-01)
PROC: B5181ZA Fluoroscopy of Superior Vena Cava using Low Osmolar Contrast, Guidance (ICD-10-PCS; 2018-09-01)
PROC: 5A1D70Z Performance of Urinary Filtration, Intermittent, Less than 6 Hours Per Day (ICD-10-PCS; 2018-09-01)
PROC: 5A1D70Z Performance of Urinary Filtration, Intermittent, Less than 6 Hours Per Day (ICD-10-PCS; 2018-09-03)
PROC: 5A1D70Z Performance of Urinary Filtration, Intermittent, Less than 6 Hours Per Day (ICD-10-PCS; 2018-09-05)
PROC: 5A1D70Z Performance of Urinary Filtration, Intermittent, Less than 6 Hours Per Day (ICD-10-PCS; 2018-09-07)
PROC: 02PYX3Z Removal of Infusion Device from Great Vessel, External Approach (ICD-10-PCS; 2018-09-09)
PROC: 0JH63XZ Insertion of Tunneled Vascular Access Device into Chest Subcutaneous Tissue and Fascia, Percutaneous Approach (ICD-10-PCS; 2018-09-09)
PROC: 02HV33Z Insertion of Infusion Device into Superior Vena Cava, Percutaneous Approach (ICD-10-PCS; 2018-09-09)
PROC: B5181ZA Fluoroscopy of Superior Vena Cava using Low Osmolar Contrast, Guidance (ICD-10-PCS; 2018-09-09)
PROC: 5A1D70Z Performance of Urinary Filtration, Intermittent, Less than 6 Hours Per Day (ICD-10-PCS; 2018-09-09)
DX: A41.9 Sepsis, unspecified organism (principal); N18.6 End stage renal disease; G92 Toxic encephalopathy; K29.71 Gastritis, unspecified, with bleeding; I21.3 ST elevation (STEMI) myocardial infarction of unspecified site; N17.9 Acute kidney failure, unspecified; E87.2 Acidosis; I12.0 Hypertensive chronic kidney disease with stage 5 chronic kidney disease or end stage renal disease; I25.110 Atherosclerotic heart disease of native coronary artery with unstable angina pectoris; N13.6 Pyonephrosis; I24.9 Acute ischemic heart disease, unspecified; I25.5 Ischemic cardiomyopathy; D50.9 Iron deficiency anemia, unspecified; D69.6 Thrombocytopenia, unspecified; E11.22 Type 2 diabetes mellitus with diabetic chronic kidney disease; E11.65 Type 2 diabetes mellitus with hyperglycemia; E83.39 Other disorders of phosphorus metabolism; F32.9 Major depressive disorder, single episode, unspecified; I48.0 Paroxysmal atrial fibrillation; K22.70 Barrett's esophagus without dysplasia; K80.20 Calculus of gallbladder without cholecystitis without obstruction; N21.0 Calculus in bladder; N32.0 Bladder-neck obstruction; N32.89 Other specified disorders of bladder; N40.0 Benign prostatic hyperplasia without lower urinary tract symptoms; Z75.1 Person awaiting admission to adequate facility elsewhere; Z79.4 Long term (current) use of insulin; Z82.49 Family history of ischemic heart disease and other diseases of the circulatory system; Z83.3 Family history of diabetes mellitus; Z99.2 Dependence on renal dialysis
CPT/HCPCS: 36415; 36556; 36558; 36589; 36600; 71045; 71250; 74176; 76700; 76770; 76937; 77001; 78806; 80048; 80061; 80305; 82270; 82375; 82550; 82553; 82607; 82805; 82962; 83036; 83540; 83550; 83735; 83880; 84100; 84132; 84145; 84443; 84484; 85014; 85018; 85027; 85044; 85347; 85379; 85384; 85520; 86022; 86706; 86803; 86850; 86900; 86920; 86927; 87070; 87340; 87389; 88305; 88312; 88313; 90585; 93005; 93306; 93458; 93880; 93970; 94002; 94640; 96374; 97110; 97116; 97163; 97166; 97530; 97535; 99291; A9547; C1725; C1729; C1750; C1751; C1752; C1758; C1769; C1887; C1893; J0282; J0330; J0690; J0692; J0696; J0885; J1170; J1200; J1250; J1580; J1642; J1644; J1650; J1720; J1815; J1956; J2060; J2250; J2260; J2270; J2370; J2405; J2704; J2710; J2720; J2765; J2930; J3010; J3475; J3480; J3490; J7040; J7050; J7060; J7620; L3908; P9016; P9017; P9034; P9041; P9047; Q9967; Q9968

== ENCOUNTER 2018-09-17 13:14 | Inpatient (IN) | payer BC ==
[~2018-09-17] VITALS: Ht 185.4 cm; Wt 88.5 kg
[2018-09-17] MEDS ORDERED: SODIUM CHLORIDE 0.9% 500 ML IV ONE (14:15)
[2018-09-17 14:20] LABS: BASOPHILS % 1.1 % (0.0-2.0); EOSINOPHILS % 1.1 % (0.0-5.0); HEMATOCRIT. 27.9 % (42.0-52.0); HEMOGLOBIN. 9.2 g/dL (14.0-18.0); LYMPHOCYTES % 8.4 % (20.0-50.0); MEAN CORPUSCULAR HEMOGLOBIN 30.8 pg (28.0-32.0); MEAN CORPUSCULAR VOLUME 93.2 fL (80.0-94.0); MONOCYTES % 6.6 % (2.0-8.0); NEUTROPHILS % 82.8 % (40.0-76.0); PLATELET 177 x1000/uL (130-400); RED CELL DISTRIBUTION WIDTH 16.3 % (11.6-14.6)
[2018-09-17 14:28] LABS: INR 1.3; PARTIAL THROMBOPLASTIN TIME 29.1 sec (23.4-31.0); PROTHROMBIN TIME 12.9 sec (9.6-11.0)
[2018-09-17 14:32] LABS: CHLORIDE 100 mEq/L (98-107)
[2018-09-17 14:36] LABS: ETHANOL BLOOD < 10 mg/dL
[2018-09-17 20:11] LABS: *COCAINE SCREEN URINE NEGATIVE (NEGATIVE); METHADONE URINE SCREEN NEGATIVE (NEGATIVE); OPIATES URINE SCREEN NEGATIVE (NEGATIVE); PHENCYCLIDINE URINE SCREEN NEGATIVE (NEGATIVE)
[2018-09-17 20:12] LABS: *AMPHETAMINES SCREEN URINE NEGATIVE (NEGATIVE); *BARBITURATES SCREEN URINE NEGATIVE (NEGATIVE); *BENZODIAZEPINES SCREEN URINE NEGATIVE (NEGATIVE); CANNABINOID URINE SCREEN NEGATIVE (NEGATIVE)
[2018-09-18] VITALS (34 sets, daily range): BP systolic -1–200; BP diastolic -6–115
[2018-09-18] MEDS ORDERED: DEXTROSE 50% WATER 50ML SYRINGE IV PRN (01:30)
[2018-09-18] MEDS ORDERED: HYDROCODONE/ACETAMINOPHEN 5/325MG TABLET PO PRN (01:30)
[2018-09-18] MEDS ORDERED: GUAIFENESIN 200MG/10ML SUGAR FREE UDC PO PRN (01:30)
[2018-09-18] MEDS ORDERED: ONDANSETRON HCL 4MG/2ML INJ IV PRN (01:30)
[2018-09-18] MEDS ORDERED: ACETAMINOPHEN 650MG/20.3ML UDC PO PRN (01:30)
[2018-09-18] MEDS ORDERED: IPRATROPIUM/ALBUTEROL 0.5-3(2.5)MG/3ML NEB NEB PRN (02:00)
[2018-09-18] MEDS ORDERED: ACETAMINOPHEN 325 MG PO SCH (02:00)
[2018-09-18] MEDS ORDERED: ONDANSETRON HCL MT PRN (02:00)
[2018-09-18] MEDS ORDERED: SERT25TA74 MT (02:04)
[2018-09-18] MEDS ORDERED: IPRA3AMP31 NEB (02:04)
[2018-09-18] MEDS ORDERED: FAMO20TA8 MT (02:04)
[2018-09-18] MEDS ORDERED: ASPI-1393 MT (02:04)
[2018-09-18] MEDS ORDERED: CARV6.2548 MT (02:04)
[2018-09-18] MEDS ORDERED: ONDA4TAB50 MT (02:04)
[2018-09-18] MEDS ORDERED: INSLIS SUBCUT (02:04)
[2018-09-18] MEDS ORDERED: TAMS-11 MT (02:04)
[2018-09-18] MEDS ORDERED: DOCU-150 MT (02:04)
[2018-09-18] MEDS ORDERED: FINA5TAB11 MT (02:04)
[2018-09-18] MEDS ORDERED: CALC-1042 PO (02:04)
[2018-09-18] MEDS ORDERED: ACET-2853 PO (02:04)
[2018-09-18] MEDS ORDERED: APIX2.5T MT (02:04)
[2018-09-18] MEDS ORDERED: AMIO100T4 PO (02:04)
[2018-09-18] MEDS ORDERED: MEDICATION NOT ON FORMULARY EA (Famotidine 1 TAB) MT SCH (07:10)
[2018-09-18] MEDS: BLOOD SUGAR DIAGNOSTIC STRIP TEST SCH ×4 (07:14→21:15)
[2018-09-18] MEDS: INSULIN LISPRO 100 UNITS/ML SUBCUT SCH ×5 (07:40→21:00)
[2018-09-18 07:45] LABS: HEMATOCRIT 26.8 % (42.0-52.0); MEAN CORPUSCULAR HEMOGLOBIN 31.3 pg (28.0-32.0); MEAN CORPUSCULAR VOLUME 93.6 fL (80.0-94.0); PLATELET 196 x1000/uL (130-400); RED BLOOD CELL COUNT 2.87 mill/uL (4.7-6.1); RED CELL DISTRIBUTION WIDTH 16.9 % (11.6-14.6)
[2018-09-18 08:01] LABS: CREATINE KINASE MB FRACTION 1.5 ng/mL (0.5-3.6)
[2018-09-18] MEDS ORDERED: SERTRALINE HCL MT SCH (09:00)
[2018-09-18] MEDS ORDERED: CALCIUM CARBONATE PO SCH (09:00)
[2018-09-18] MEDS ORDERED: CARVEDILOL 6.25 MG TABLET PO SCH (09:00)
[2018-09-18] MEDS: DOCUSATE SODIUM 100MG CAPSULE PO SCH ×3 (09:00→18:32)
[2018-09-18] MEDS: FAMOTIDINE 20MG TABLET PO SCH (09:00)
[2018-09-18] MEDS: SERTRALINE HCL 25MG TABLET PO SCH (09:00)
[2018-09-18] MEDS ORDERED: MEDICATION NOT ON FORMULARY EA (Aspirin (Aspirin Low Dose) 1 TAB) MT SCH (09:00)
[2018-09-18] MEDS: AMIODARONE HCL 200 MG TABLET PO SCH ×2 (09:00→18:32)
[2018-09-18] MEDS ORDERED: MEDICATION NOT ON FORMULARY EA (Amiodarone HCl 200 MG) PO SCH (09:00)
[2018-09-18] MEDS ORDERED: MEDICATION NOT ON FORMULARY EA (Docusate Sodium 1 CAP) MT SCH (09:00)
[2018-09-18] MEDS ORDERED: APIXABAN 2.5 MG TABLET PO SCH (09:00)
[2018-09-18] MEDS: CALCIUM ACETATE 667MG CAPSULE PO SCH ×4 (09:05→18:31)
[2018-09-18] MEDS: ASPIRIN 81MG EC TABLET PO SCH (09:06)
[2018-09-18] MEDS: GUAIFENESIN 600MG ER TABLET PO SCH ×2 (11:15→21:08)
[2018-09-18] MEDS ORDERED: SODIUM CHLORIDE 0.45% 500 ML IV SCH (12:30)
[2018-09-18] MEDS ORDERED: NOREPINEPHRINE 4 MG in DEXTROSE 5% WATER 250 ML IV PRN (14:15)
[2018-09-18] MEDS ORDERED: EPINEPHRINE 1 MG in SODIUM CHLORIDE 0.9% 250 ML IV PRN (14:15)
[2018-09-18] MEDS ORDERED: CEFAZOLIN SODIUM 1000MG/VIAL ONE (14:24)
[2018-09-18] MEDS ORDERED: STERILE WATER FOR INJECTION 10ML VIAL ONE ×2 (14:24→14:42)
[2018-09-18] MEDS ORDERED: ROCURONIUM BROMIDE 10MG/ML VIAL 5ML IV ONE (14:25)
[2018-09-18] MEDS ORDERED: DIPHENHYDRAMINE 50MG/ML VIAL ONE (14:26)
[2018-09-18] MEDS ORDERED: BACITRACIN 50,000 UNITS/VIAL ONE (14:26)
[2018-09-18] MEDS ORDERED: NORMAL SALINE 0.9% 10 ML SYR ONE (14:26)
[2018-09-18] MEDS ORDERED: ETOMIDATE 2MG/ML 10ML VIAL IV ONE (14:26)
[2018-09-18] MEDS ORDERED: BUPIVACAINE/EPINEPH/PF 0.25%/0.0005 10ML ONE (14:26)
[2018-09-18] MEDS ORDERED: EPINEPHRINE 0.1MG/ML (1:10,000) 10ML SYR ONE (14:27)
[2018-09-18] MEDS ORDERED: MIDAZOLAM HCL 2 MG/2 ML VIAL ONE (14:30)
[2018-09-18] MEDS ORDERED: FENTANYL CITRATE/PF 50MCG/ML 2ML VIAL ONE (14:30)
[2018-09-18] MEDS ORDERED: LIDOCAINE HCL/PF 1% 10 MG/ML 5ML VIAL ONE (14:36)
[2018-09-18] MEDS ORDERED: PROPOFOL 200MG/20ML VIAL IV ONE (15:24)
[2018-09-18] MEDS ORDERED: SKIN ADHESIVE 0.7 GM EA TOP ONE (16:11)
[2018-09-18] MEDS ORDERED: METOCLOPRAMIDE HCL 10MG/2ML VIAL ONE (16:16)
[2018-09-18] MEDS ORDERED: ONDANSETRON HCL 4MG/2ML INJ ONE (16:16)
[2018-09-18] MEDS ORDERED: NEOSTIGMINE METHYLSULFATE 1MG/ML 10 ML VIAL ONE (16:22)
[2018-09-18] MEDS ORDERED: ACETAMINOPHEN 325MG TABLET PO PRN (17:00)
[2018-09-18] MEDS ORDERED: ONDANSETRON HCL 4MG TABLET PO PRN (17:00)
[2018-09-18] MEDS ORDERED: OXYCODONE HCL/ACETAMINOPHEN 5/325MG TABLET PO PRN ×2 (17:00)
[2018-09-18] MEDS ORDERED: SODIUM CHLORIDE 0.9% 500 ML IV PRN (17:15)
[2018-09-18 17:20] LABS: BG BASE EXCESS -1.3 mmol/L (-2.0-2.0); BG CARBOXYHEMOGLOBIN 0.3 % (0.5-1.5); BG DEOXYHEMOGLOBIN 4.4 % (0.0-5.0); BG FRACTION INSPIRED OXYGEN 28; BG HCO3 ACT 22.9 mmol/L (22.0-26.0); BG METHEMOGLOBIN 0.4 % (0.0-1.5); BG OXYGEN SATURATION 95.6 % (92.0-98.5); BG OXYHEMOGLOBIN 94.9 % (94.0-97.0); BG PCO2 36.4 mmHg (35.0-45.0); BG PH 7.417 (7.350-7.450); BG PO2 88.6 mmHg (75.0-100.0); BG SAMPLE SITE A-LINE; BG TOTAL HEMOGLOBIN 9.3 g/dL (12.0-18.0); BG VENT MODE NASAL CANNULA
[2018-09-18] MEDS ORDERED: SODIUM CHLORIDE 0.45% 1,000 ML IV SCH (17:30)
[2018-09-18] MEDS ORDERED: CEFAZOLIN 1000MG PREMIX 50 ML IV SCH (18:00)
[2018-09-18] MEDS: BACITRACIN 15GM TUBE TOP SCH ×2 (18:00→21:14)
[2018-09-18] MEDS: DEXT 5%/0.45% NACL 1000ML 1,000 ML IV SCH (18:31)
[2018-09-18] MEDS ORDERED: GUAIFENESIN 600MG ER TABLET PO SCH (21:00)
[2018-09-18] MEDS ORDERED: MEDICATION NOT ON FORMULARY EA (Finasteride 1 TAB) MT SCH (21:00)
[2018-09-18] MEDS: TAMSULOSIN HCL 0.4MG SR CAPSULE PO SCH (21:07)
[2018-09-18] MEDS: FINASTERIDE 5MG TABLET PO SCH (21:08)
[2018-09-18] MEDS: CARVEDILOL 3.125 MG TABLET PO SCH (21:08)
[2018-09-18] MEDS: MORPHINE SULFATE 2 MG/ML CPJ (NOT FOR IM USE) IV PRN (21:50)
[2018-09-18] MEDS: IPRATROPIUM/ALBUTEROL 0.5-3(2.5)MG/3ML NEB HHN SCH (22:18)
[2018-09-19] VITALS (42 sets, daily range): BP systolic 88–176; BP diastolic 51–97
[2018-09-19] MEDS: IPRATROPIUM/ALBUTEROL 0.5-3(2.5)MG/3ML NEB HHN SCH ×5 (00:34→21:00)
[2018-09-19] MEDS: MORPHINE SULFATE 2 MG/ML CPJ (NOT FOR IM USE) IV PRN ×2 (02:22→05:52)
[2018-09-19 06:18] LABS: BASOPHILS % 0.6 % (0.0-2.0); EOSINOPHILS % 4.9 % (0.0-5.0); HEMATOCRIT. 28.9 % (42.0-52.0); HEMOGLOBIN. 9.4 g/dL (14.0-18.0); LYMPHOCYTES % 9.9 % (20.0-50.0); MEAN CORPUSCULAR HEMOGLOBIN 30.6 pg (28.0-32.0); MEAN CORPUSCULAR VOLUME 93.9 fL (80.0-94.0); MEAN PLATELET VOLUME 8.3 fl (7.4-10.4); MONOCYTES % 7.1 % (2.0-8.0); NEUTROPHILS % 77.5 % (40.0-76.0); PLATELET 214 x1000/uL (130-400); RED BLOOD CELL COUNT 3.08 mill/uL (4.7-6.1); RED CELL DISTRIBUTION WIDTH 17.5 % (11.6-14.6)
[2018-09-19 06:20] LABS: CHLORIDE 103 mEq/L (98-107)
[2018-09-19 06:29] LABS: PHOSPHORUS 4.3 mg/dL (2.5-4.9)
[2018-09-19 06:30] LABS: LDL CHOLESTEROL 46 mg/dL (5-100)
[2018-09-19 06:31] LABS: CREATINE KINASE 89 IU/L (39-308); CREATINE KINASE MB FRACTION 2.3 ng/mL (0.5-3.6)
[2018-09-19 06:32] LABS: HDL CHOLESTEROL 26 mg/dL (40-59)
[2018-09-19] MEDS: BLOOD SUGAR DIAGNOSTIC STRIP TEST SCH ×4 (07:38→21:22)
[2018-09-19] MEDS: CALCIUM ACETATE 667MG CAPSULE PO SCH ×3 (07:45→16:17)
[2018-09-19] MEDS: INSULIN LISPRO 100 UNITS/ML SUBCUT SCH ×4 (08:09→21:00)
[2018-09-19] MEDS: AMIODARONE HCL 200 MG TABLET PO SCH ×2 (09:00→16:17)
[2018-09-19] MEDS: DOCUSATE SODIUM 100MG CAPSULE PO SCH ×4 (09:00→16:18)
[2018-09-19] MEDS: CARVEDILOL 3.125 MG TABLET PO SCH ×2 (09:00→20:51)
[2018-09-19] MEDS: FAMOTIDINE 20MG TABLET PO SCH (09:06)
[2018-09-19] MEDS: GUAIFENESIN 600MG ER TABLET PO SCH ×2 (09:06→20:48)
[2018-09-19] MEDS: SERTRALINE HCL 25MG TABLET PO SCH (09:06)
[2018-09-19] MEDS: ASPIRIN 81MG EC TABLET PO SCH (09:06)
[2018-09-19] MEDS: BACITRACIN 15GM TUBE TOP SCH ×2 (09:07→17:05)
[2018-09-19] MEDS: DEXT 5%/0.45% NACL 1000ML 1,000 ML IV SCH (13:06)
[2018-09-19] MEDS: FINASTERIDE 5MG TABLET PO SCH (20:48)
[2018-09-19] MEDS: TAMSULOSIN HCL 0.4MG SR CAPSULE PO SCH (20:52)
[2018-09-20] VITALS (17 sets, daily range): BP systolic 86–142; BP diastolic 52–91
[2018-09-20] MEDS: IPRATROPIUM/ALBUTEROL 0.5-3(2.5)MG/3ML NEB HHN SCH ×6 (00:50→21:00)
[2018-09-20] MEDS: MORPHINE SULFATE 2 MG/ML CPJ (NOT FOR IM USE) IV PRN (02:15)
[2018-09-20] MEDS: BLOOD SUGAR DIAGNOSTIC STRIP TEST SCH ×4 (06:49→21:13)
[2018-09-20] MEDS: INSULIN LISPRO 100 UNITS/ML SUBCUT SCH ×4 (07:20→21:00)
[2018-09-20] MEDS: CARVEDILOL 3.125 MG TABLET PO SCH ×2 (08:20→21:13)
[2018-09-20] MEDS: AMIODARONE HCL 200 MG TABLET PO SCH ×2 (08:22→16:46)
[2018-09-20] MEDS: CALCIUM ACETATE 667MG CAPSULE PO SCH ×4 (08:22→17:20)
[2018-09-20] MEDS: SERTRALINE HCL 25MG TABLET PO SCH (08:22)
[2018-09-20] MEDS: DOCUSATE SODIUM 100MG CAPSULE PO SCH ×2 (08:22→16:46)
[2018-09-20] MEDS: ASPIRIN 81MG EC TABLET PO SCH (08:22)
[2018-09-20] MEDS: GUAIFENESIN 600MG ER TABLET PO SCH ×2 (08:22→21:12)
[2018-09-20] MEDS: FAMOTIDINE 20MG TABLET PO SCH (08:22)
[2018-09-20] MEDS: BACITRACIN 15GM TUBE TOP SCH ×2 (09:00→17:00)
[2018-09-20 11:33] LABS: HEMATOCRIT. 29.4 % (42.0-52.0); HEMOGLOBIN. 9.6 g/dL (14.0-18.0); MEAN CORPUSCULAR HEMOGLOBIN 31.2 pg (28.0-32.0); MEAN CORPUSCULAR VOLUME 95.3 fL (80.0-94.0); MEAN PLATELET VOLUME 8.2 fl (7.4-10.4); PLATELET 221 x1000/uL (130-400); RED BLOOD CELL COUNT 3.08 mill/uL (4.7-6.1); RED CELL DISTRIBUTION WIDTH 17.7 % (11.6-14.6)
[2018-09-20 11:55] LABS: PHOSPHORUS 4.9 mg/dL (2.5-4.9)
[2018-09-20] MEDS: DEXT 5%/0.45% NACL 1000ML 1,000 ML IV SCH (12:04)
[2018-09-20 12:50] LABS: PLATELET ESTIMATE NORMAL
[2018-09-20] MEDS: TAMSULOSIN HCL 0.4MG SR CAPSULE PO SCH (21:12)
[2018-09-20] MEDS: FINASTERIDE 5MG TABLET PO SCH (21:12)
[2018-09-21] VITALS (18 sets, daily range): BP systolic 90–152; BP diastolic 52–84
[2018-09-21] MEDS: IPRATROPIUM/ALBUTEROL 0.5-3(2.5)MG/3ML NEB HHN SCH ×6 (00:37→21:03)
[2018-09-21] MEDS: DEXT 5%/0.45% NACL 1000ML 1,000 ML IV SCH (05:07)
[2018-09-21] MEDS: BLOOD SUGAR DIAGNOSTIC STRIP TEST SCH ×4 (06:50→20:11)
[2018-09-21] MEDS: INSULIN LISPRO 100 UNITS/ML SUBCUT SCH ×4 (07:20→20:11)
[2018-09-21] MEDS: CARVEDILOL 3.125 MG TABLET PO SCH ×2 (08:22→20:10)
[2018-09-21] MEDS: SERTRALINE HCL 25MG TABLET PO SCH (08:22)
[2018-09-21] MEDS: GUAIFENESIN 600MG ER TABLET PO SCH ×2 (08:26→20:11)
[2018-09-21] MEDS: FAMOTIDINE 20MG TABLET PO SCH (08:26)
[2018-09-21] MEDS: DOCUSATE SODIUM 100MG CAPSULE PO SCH ×2 (08:26→16:28)
[2018-09-21] MEDS: AMIODARONE HCL 200 MG TABLET PO SCH ×2 (08:26→16:28)
[2018-09-21] MEDS: CALCIUM ACETATE 667MG CAPSULE PO SCH ×3 (08:26→17:34)
[2018-09-21] MEDS: BACITRACIN 15GM TUBE TOP SCH ×2 (09:00→16:30)
[2018-09-21 09:30] LABS: HEMATOCRIT. 28.2 % (42.0-52.0); HEMOGLOBIN. 9.4 g/dL (14.0-18.0); MEAN CORPUSCULAR HEMOGLOBIN 31.8 pg (28.0-32.0); MEAN CORPUSCULAR VOLUME 95.6 fL (80.0-94.0); MEAN PLATELET VOLUME 8.2 fl (7.4-10.4); PLATELET 184 x1000/uL (130-400); RED BLOOD CELL COUNT 2.95 mill/uL (4.7-6.1); RED CELL DISTRIBUTION WIDTH 17.9 % (11.6-14.6)
[2018-09-21 09:41] LABS: PHOSPHORUS 3.7 mg/dL (2.5-4.9)
[2018-09-21 12:01] LABS: PLATELET ESTIMATE NORMAL
[2018-09-21] MEDS: ASPIRIN 81MG EC TABLET PO SCH (12:51)
[2018-09-21] MEDS: FINASTERIDE 5MG TABLET PO SCH (20:11)
[2018-09-21] MEDS: TAMSULOSIN HCL 0.4MG SR CAPSULE PO SCH (20:11)
[2018-09-22] VITALS (15 sets, daily range): BP systolic 106–149; BP diastolic 59–90
[2018-09-22] MEDS: IPRATROPIUM/ALBUTEROL 0.5-3(2.5)MG/3ML NEB HHN SCH ×6 (00:50→20:44)
[2018-09-22] MEDS: DEXT 5%/0.45% NACL 1000ML 1,000 ML IV SCH ×2 (01:37→21:00)
[2018-09-22] MEDS: INSULIN LISPRO 100 UNITS/ML SUBCUT SCH ×4 (07:20→21:00)
[2018-09-22 07:46] LABS: CHLORIDE 101 mEq/L (98-107)
[2018-09-22] MEDS: BLOOD SUGAR DIAGNOSTIC STRIP TEST SCH ×4 (07:49→21:02)
[2018-09-22] MEDS: ASPIRIN 81MG EC TABLET PO SCH (09:10)
[2018-09-22] MEDS: CALCIUM ACETATE 667MG CAPSULE PO SCH ×3 (09:10→17:41)
[2018-09-22] MEDS: FAMOTIDINE 20MG TABLET PO SCH (09:10)
[2018-09-22] MEDS: AMIODARONE HCL 200 MG TABLET PO SCH ×2 (09:10→17:41)
[2018-09-22] MEDS: SERTRALINE HCL 25MG TABLET PO SCH (09:10)
[2018-09-22] MEDS: CARVEDILOL 3.125 MG TABLET PO SCH ×2 (09:10→21:00)
[2018-09-22] MEDS: GUAIFENESIN 600MG ER TABLET PO SCH ×2 (09:10→21:01)
[2018-09-22] MEDS: BACITRACIN 15GM TUBE TOP SCH ×2 (09:12→17:42)
[2018-09-22] MEDS: DOCUSATE SODIUM 100MG CAPSULE PO SCH ×2 (09:13→17:42)
[2018-09-22] MEDS: TAMSULOSIN HCL 0.4MG SR CAPSULE PO SCH (21:01)
[2018-09-22] MEDS: FINASTERIDE 5MG TABLET PO SCH (21:01)
[2018-09-23] VITALS (9 sets, daily range): BP systolic 88–141; BP diastolic 57–90
[2018-09-23] MEDS: IPRATROPIUM/ALBUTEROL 0.5-3(2.5)MG/3ML NEB HHN SCH ×3 (00:39→08:40)
[2018-09-23] MEDS: BLOOD SUGAR DIAGNOSTIC STRIP TEST SCH ×2 (06:50→11:20)
[2018-09-23] MEDS: INSULIN LISPRO 100 UNITS/ML SUBCUT SCH ×2 (07:20→12:20)
[2018-09-23] MEDS: ASPIRIN 81MG EC TABLET PO SCH (08:33)
[2018-09-23] MEDS: BACITRACIN 15GM TUBE TOP SCH (08:33)
[2018-09-23] MEDS: GUAIFENESIN 600MG ER TABLET PO SCH (08:33)
[2018-09-23] MEDS: FAMOTIDINE 20MG TABLET PO SCH (08:34)
[2018-09-23] MEDS: AMIODARONE HCL 200 MG TABLET PO SCH (08:34)
[2018-09-23] MEDS: CARVEDILOL 3.125 MG TABLET PO SCH (08:34)
[2018-09-23] MEDS: DOCUSATE SODIUM 100MG CAPSULE PO SCH (08:34)
[2018-09-23] MEDS: CALCIUM ACETATE 667MG CAPSULE PO SCH ×2 (08:34→12:55)
[2018-09-23] MEDS: SERTRALINE HCL 25MG TABLET PO SCH (08:34)
[2018-09-23 12:38] LABS: EOSINOPHILS % 8.1 % (0.0-5.0); HEMATOCRIT. 26.8 % (42.0-52.0); HEMOGLOBIN. 8.9 g/dL (14.0-18.0); LYMPHOCYTES % 8.2 % (20.0-50.0); MEAN CORPUSCULAR HEMOGLOBIN 31.2 pg (28.0-32.0); MEAN CORPUSCULAR VOLUME 93.6 fL (80.0-94.0); MEAN PLATELET VOLUME 7.4 fl (7.4-10.4); NEUTROPHILS % 68.7 % (40.0-76.0); PLATELET 196 x1000/uL (130-400); RED BLOOD CELL COUNT 2.86 mill/uL (4.7-6.1)
== END 2018-09-23 16:30 | disposition home health service (06) | DRG 270 ==
LOC: ER 13:14 → 8WST 18:59 → ENRESERV 22:29 → CVICU 09-18 17:00 → 3WST 09-19 15:32
PROVIDERS: ADMIT Internal Medicine; ATTEND Internal Medicine
PROC: 0W9D0ZZ Drainage of Pericardial Cavity, Open Approach (ICD-10-PCS; principal; 2018-09-18)
PROC: 5A1D70Z Performance of Urinary Filtration, Intermittent, Less than 6 Hours Per Day (ICD-10-PCS; 2018-09-18)
PROC: 0W9D00Z Drainage of Pericardial Cavity with Drainage Device, Open Approach (ICD-10-PCS; 2018-09-18)
PROC: B24CZZ4 Ultrasonography of Pericardium, Transesophageal (ICD-10-PCS; 2018-09-18)
PROC: 5A1D70Z Performance of Urinary Filtration, Intermittent, Less than 6 Hours Per Day (ICD-10-PCS; 2018-09-20)
PROC: 5A1D70Z Performance of Urinary Filtration, Intermittent, Less than 6 Hours Per Day (ICD-10-PCS; 2018-09-21)
DX: I31.3 Pericardial effusion (noninflammatory) (principal); N18.6 End stage renal disease; J98.11 Atelectasis; N17.9 Acute kidney failure, unspecified; E46 Unspecified protein-calorie malnutrition; J90 Pleural effusion, not elsewhere classified; I13.11 Hypertensive heart and chronic kidney disease without heart failure, with stage 5 chronic kidney disease, or end stage renal disease; N13.8 Other obstructive and reflux uropathy; I31.4 Cardiac tamponade; I95.1 Orthostatic hypotension; I48.0 Paroxysmal atrial fibrillation; I25.10 Atherosclerotic heart disease of native coronary artery without angina pectoris; E11.22 Type 2 diabetes mellitus with diabetic chronic kidney disease; D63.8 Anemia in other chronic diseases classified elsewhere; D72.829 Elevated white blood cell count, unspecified; E78.00 Pure hypercholesterolemia, unspecified; N40.1 Benign prostatic hyperplasia with lower urinary tract symptoms; W19.XXXA Unspecified fall, initial encounter; Y93.89 Activity, other specified; Y92.89 Other specified places as the place of occurrence of the external cause; Y99.8 Other external cause status; Z86.73 Personal history of transient ischemic attack (TIA), and cerebral infarction without residual deficits; Z95.1 Presence of aortocoronary bypass graft; Z99.2 Dependence on renal dialysis; I25.2 Old myocardial infarction; Z79.899 Other long term (current) drug therapy; Z79.4 Long term (current) use of insulin; Z79.82 Long term (current) use of aspirin; Z68.25 Body mass index [BMI] 25.0-25.9, adult
CPT/HCPCS: 36415; 36600; 71045; 76770; 80048; 80061; 80305; 80320; 82375; 82550; 82553; 82805; 82962; 83735; 83880; 84100; 84145; 84484; 85027; 85379; 86850; 86900; 86920; 93005; 93306; 94640; 96360; 96361; 97116; 97162; 97166; 97530; 99285; A4216; C1893; J0171; J0690; J1200; J1815; J2250; J2270; J2405; J2704; J2710; J2765; J3010; J3490; J7040; J7042; J7050; J7620; L3908; G0480